=== PATIENT | male | born 1960 | race Caucasian/White ===

== ENCOUNTER 2025-01-24 11:53 | Inpatient (IN) | payer MEDICAID, SELFPAY ==
[2025-01-24] VITALS (20 sets, daily range): BP systolic 82–175; BP diastolic 54–105; PULSE 69–108; RESP 13–20; TEMP 36.5–37.7; O2SAT 90–98; BMI 25.0
--- NOTE | 2025-01-24 11:57 | ECG_ITS ---
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 Measurements Intervals [place] Rate: 70 P: 79 OR: 168 QRS: 62 QRSD: 85 T: 75 QT: 417 QTc: 451 Interpretive Statements SINUS RHYTHM SEPTAL MYOCARDIAL INFARCTION , OF INDETERMINATE AGE [40+ ms Q WAVE IN V1/V2] No previous ECG available for comparison Electronically Signed On 01-25-2025 18:08:58 CDT by Trenton Zaldivar M.D. [email or web address]
--- NOTE | 2025-01-24 12:02 | CTR_ITS ---
PROCEDURE INFORMATION: Exam: CT Lumbar Spine Without Contrast Exam date and time: 01/24/2025 12:33 PM Age: 64 years old Clinical indication: Injury or trauma; Blunt trauma (contusions or hematomas); Injury date: 01/24/25; Injury details: Trauma; Fall today off of porch step, PT states lb twisted when he grabbed rail to keep from falling and landed on RT hip; Prior surgery; Surgery date: 6+ months; Surgery type: C spine; Additional info: Low back pain TECHNIQUE: Imaging protocol: Computed tomography of the lumbar spine without contrast. Radiation optimization: All CT scans at this facility use at least one of these dose optimization techniques: automated exposure control; mA and/or kV adjustment per patient size (includes targeted exams where dose is matched to clinical indication); or iterative reconstruction. COMPARISON: CT pelvis wo con [id number] 01/24/2025 12:33 PM RADIATION DOSE METRICS: Total DLP (mGy-cm): 1815.38 FINDINGS: Bones/joints: Moderate scoliosis convex to the left. 7 mm right lateral subluxation of L2 on L3. 10 mm left lateral subluxation of L4 on L5. 2 mm posterior subluxation of L2 on L3. 6 mm posterior subluxation of L5 on S1. Severe L4-L5 degenerative disc disease. Minimal L1-L2 degenerative disc disease. Moderate degenerative disc disease at the other levels. No obvious disc herniations, but evaluation for such is limited on a noncontrast CT. Extensive degenerative changes in vertebral bodies from the L3 level to the S1 level. Chronic osteomyelitis can have a similar appearance, but should only be considered in the proper clinical setting. Multiple Schmorl's nodes throughout the lumbar spine and upper sacrum. Probably all chronic, but 1 or more could conceivably be acute in the setting of trauma. Mild right L2-L3 facet osteoarthritis. Moderate bilateral L3-L4 and L5-S1 facet osteoarthritis. Severe bilateral L4-L5 facet osteoarthritis. Mild L2-L3 spinal stenosis. Moderate L3-L4 and L4-L5 spinal stenosis. No other significant spinal stenosis. Moderate right and mild left L2-L3 neural foraminal narrowing. Moderate right L3-L4 neural foraminal narrowing. Severe bilateral L4-L5 neural foraminal narrowing. Moderate bilateral L5-S1 neural foraminal narrowing. No other significant neural foraminal narrowing. No other fractures suspected. Otherwise, unremarkable. Soft tissues: Otherwise, unremarkable soft tissues. CT/CT lumbar spine wo con* [id number] IMPRESSION: 1. Multiple Schmorl's nodes throughout the lumbar spine and upper sacrum. Probably all chronic, but 1 or more could conceivably be acute in the setting of trauma. 2. No other acute lumbar spine findings. 3. Additional details as above.
--- NOTE | 2025-01-24 12:02 | CTR_ITS ---
PROCEDURE INFORMATION: Exam: CT Pelvis Without Contrast, Skeleton Exam date and time: 01/24/2025 12:33 PM Age: 64 years old Clinical indication: Injury or trauma; Blunt trauma (contusions or hematomas); Bilateral; Pelvic region; Injury date: 01/24/25; Injury details: Trauma; Fall today off of porch step, PT states lb twisted when he grabbed rail to keep from falling and landed on RT hip; Additional info: Traumatic pelvic pain TECHNIQUE: Imaging protocol: Computed tomography of the pelvis without contrast. Exam focused on the skeleton. Radiation optimization: All CT scans at this facility use at least one of these dose optimization techniques: automated exposure control; mA and/or kV adjustment per patient size (includes targeted exams where dose is matched to clinical indication); or iterative reconstruction. COMPARISON: CT lumbar spine wo con* [id number] 01/24/2025 12:33 PM RADIATION DOSE METRICS: Total DLP (mGy-cm): 1815.38 FINDINGS: Intestine: Unremarkable visualized bowel. Vasculature: Small amount of arterial calcification. Otherwise, unremarkable. Reproductive: Enlargement of the prostate gland measuring 6.5 cm by 5 cm by 4.2 cm. Otherwise, unremarkable reproductive structures Urinary bladder: Mild, diffuse urinary bladder wall thickening. Otherwise, unremarkable urinary bladder. Bones/joints: See today's separate report for lumbar spine. Impacted right femoral neck fracture with varus deformity and anterior angulation. Otherwise, unremarkable. Soft tissues: Small bilateral fat containing inguinal hernias. Otherwise, unremarkable visualized body wall. Otherwise, unremarkable soft tissues. Lymph nodes: No lymphadenopathy. CT/CT pelvis wo con [id number] IMPRESSION: 1. Impacted right femoral neck fracture with varus deformity and anterior angulation. 2. Enlargement of the prostate gland measuring 6.5 cm by 5 cm by 4.2 cm. Please correlate with PSA levels. 3. Mild, diffuse urinary bladder wall thickening. Likely due to partial bladder outlet obstruction, but cystitis should be considered in the proper clinical setting. 4. No other acute pelvic findings.
--- NOTE | 2025-01-24 12:06 | XR_ITS ---
WS: [id number] Right hip, 2 views, 01/24/2025 Clinical Data: hip pain Comparison: None. Findings: There is a fracture of the right femoral neck. The femoral head remains within the acetabulum. There is slight superior displacement of the shaft of the right femur. The adjacent right pelvis is intact. XR/XR hip RT 2-3V wo/w pel* [id number] Impression: Right femoral neck fracture.
--- NOTE | 2025-01-24 12:24 | W.ED.EXTPRO ---
HPI - Extremity Problem General: Chief complaint: Extremity Injury, Lower Stated complaint: Fall Time Seen by Provider: 01/24/25 11:56 History of Present Illness: 64-year-old man with no significant past medical history presents emergency room after having had a fall. He says he tripped and fell over his dog and now has low back and right hip pain. He is curled up in the bed on examination so I cannot determine initially if he has any shortening or rotation. No neurologic symptoms. No head injury. No blood thinners. No other extremity injuries. No chest pain. No abdominal pain. No nausea or vomiting. Related Data Home Medications ?Medication ?Instructions ?Recorded ?Confirmed acetaminophen 500 mg tablet 1,000 mg PO QID PRN Fever Or Pain 01/24/25 01/24/25 (Tylenol Extra Strength) duloxetine 30 mg capsule,delayed 30 mg PO DAILY 01/24/25 01/24/25 release omeprazole 40 mg capsule,delayed 40 mg PO DAILY 01/24/25 01/24/25 release Allergies Allergy/AdvReac Type Severity Reaction Status Date / Time No Known Allergies Allergy Verified 01/24/25 14:38 Review of Systems Narrative: Constitutional symptoms: Negative except as documented in HPI. Skin symptoms: Negative except as documented in HPI. Eye symptoms: Negative except as documented in HPI. ENMT symptoms: Negative except as documented in HPI. Respiratory symptoms: Negative except as documented in HPI. Cardiovascular symptoms: Negative except as documented in HPI. Gastrointestinal symptoms: Negative except as documented in HPI. Genitourinary symptoms: Negative except as documented in HPI. Musculoskeletal symptoms: Negative except as documented in HPI. Neurologic symptoms: Negative except as documented in HPI. Psychiatric symptoms: Negative except as documented in HPI. Endocrine symptoms: Negative except as documented in HPI. Physical Exam Narrative: EXAM NARRATIVE: General: Alert, no acute distress. Skin: Warm, dry. Head: Normocephalic, atraumatic. Neck: Supple, trachea midline. Eye: Extraocular movements are intact. Ears, nose, mouth and throat: mucosa moist. Cardiovascular: Regular, Normal peripheral perfusion. Respiratory: Lungs are clear to auscultation, respirations are non-labored, breath sounds are equal, Symmetrical chest wall expansion. Gastrointestinal: Soft, Nontender, Non distended Musculoskeletal: No obvious shortening or rotation. However patient does have diffuse tenderness of his low back. Neurological: Alert and oriented, No focal neurological deficit observed. Psychiatric: Cooperative, appropriate mood & affect. Course Vital Signs: Vital signs: Vital Signs Temperature 98.7 F 01/24/25 14:34 Pulse Rate 108 H 01/24/25 14:34 Respiratory Rate 20 H 01/24/25 14:41 Blood Pressure 137/100 01/24/25 14:34 Pulse Oximetry 93 01/24/25 14:41 Oxygen Delivery Me thod Room Air 01/24/25 14:34 MDM - Extremity (Nontraumatic) Medical Decision Making Medical decision making: Differential diagnosis for patient with fall and hip pain with deformity including but not limited to and based on the above HPI, review of systems and physical exam: Hip fracture, femur fracture, pelvic fractures including pubic rami and acetabular fractures, hip strain, hip contusion. - Workup: - Hip films ordered to evaluate above. - also presurgical work up done. EKG, Chest xray and lab work CT of the lumbar spine and pelvis were done. Patient was not able to turn over for pelvic x-ray initially. Lab Review: Laboratory results were reviewed and interpreted by myself the emergency room physician. No leukocytosis. No anemia. No renal failure. Coags are normal. Consultation: I spoke with Dr. Gonzalez who is on-call for orthopedics who agrees to admission. He is going to take the patient directly to the OR. Patient has been n.p.o. all day today. Lumbar CT: Multiple Schmorl's nodes but no obvious acute fractures. This was reviewed and interpreted by myself the emergency room physician. I also reviewed the radiology report. Pelvis CT: Impacted right femoral neck fracture with varus deformity and anterior angulation. Other nonemergent findings. This was reviewed and interpreted by myself the emergency room physician. I also reviewed the radiology report. I reviewed the patient's medical record. Reexamination: Patient appears more comfortable now. He is laying flat in the bed. He does have some shortening and rotation. No increased work of breathing. No altered mental status. Assessment and plan: Fall Hip fracture - Patient going directly to the OR. IV Dilaudid in the emergency room. - Discussed findings and plan with patient. Answered any questions. - All laboratory values were reviewed and interpreted personally by myself, the ER physician - All imaging was reviewed and interpreted personally by myself, the ER physician. - Evaluation and treatment of this problem were appropriate in the emergency setting Lab Data 01/24/25 12:57 01/24/25 13:30 Radiology Impressions Lumbar Spine CT 01/24/25 12:02 IMPRESSION: 1. Multiple Schmorl's nodes throughout the lumbar spine and upper sacrum. Probably all chronic, but 1 or more could conceivably be acute in the setting of trauma. 2. No other acute lumbar spine findings. 3. Additional details as above. Pelvis CT 01/24/25 12:02 IMPRESSION: 1. Impacted right femoral neck fracture with varus deformity and anterior angulation. 2. Enlargement of the prostate gland measuring 6.5 cm by 5 cm by 4.2 cm. Please correlate with PSA levels. 3. Mild, diffuse urinary bladder wall thickening. Likely due to partial bladder outlet obstruction, but cystitis should be considered in the proper clinical setting. 4. No other acute pelvic findings. Hip/Pelvis X-Ray 01/24/25 12:06 Impression: Right femoral neck fracture. Chest X-Ray 01/24/25 12:44 IMPRESSION: No acute disease. Laboratory Results WBC 10.71 10^3/uL (3.29-11.43) 01/24/25 12:57 RBC 4.72 10^6/uL (3.85-5.65) 01/24/25 12:57 Hgb 14.80 g/dL (11.27-16.99) 01/24/25 12:57 Hct 45.2 % (37-53) 01/24/25 12:57 MCV 95.8 fl (82-101) 01/24/25 12:57 MCH 31.4 pg (27-33) 01/24/25 12:57 MCHC 32.7 g/dL (30-55) 01/24/25 12:57 RDW 13.3 % (12.1-15.1) 01/24/25 12:57 Plt Count 191 10^3/cmm (157-399) 01/24/25 12:57 MPV 9.6 fL (7.4-10.4) 01/24/25 12:57 Neut % (Auto) 84.7 % 01/24/25 12:57 Lymph % (Auto) 10.0 % 01/24/25 12:57 [place] % (Auto) 4.3 % 01/24/25 12:57 Eos % (Auto) 0.5 % 01/24/25 12:57 Baso % (Auto) 0.2 % 01/24/25 12:57 Neut # (Auto) 9.08 10^3/uL (1.8-7.7) H 01/24/25 12:57 Lymph # (Auto) 1.1 10^3/uL (0.8-4.8) 01/24/25 12:57 [place] # (Auto) 0.5 10^3/uL (0.2-0.9) 01/24/25 12:57 Eos # (Auto) 0.1 10^3/uL (0.0-0.8) 01/24/25 12:57 Baso # (Auto) 0.0 10^3/uL (0.0-0.1) 01/24/25 12:57 Nucleated RBC % (auto) 0 % 01/24/25 12:57 Nucleated RBCs # 0.0 /100WBC 01/24/25 12:57 PT 12.90 SECONDS (12.1-14.9) 01/24/25 13:30 INR 0.91 (0.8-1.2) 01/24/25 13:30 APTT 27.1 SECONDS (23.9-36.7) 01/24/25 13:30 Sodium 141 mmol/L (136-145) 01/24/25 13:30 Potassium 3.9 mmol/L (3.5-5.1) 01/24/25 13:30 Chloride 104 mmol/L (98-107) 01/24/25 13:30 Carbon Dioxide 25 mmol/L (22-29) 01/24/25 13:30 Anion Gap 15.9 (5-19) 01/24/25 13:30 BUN 10 mg/dL (8-23) 01/24/25 13:30 Creatinine 0.9 mg/dL (0.7-1.2) 01/24/25 13:30 GFR Calculation 85.5 mL/min (90-130) L 01/24/25 13:30 Glucose 97 mg/dL (65-115) 01/24/25 13:30 Calculated Osmolality 291 mOsm/kg (285-295) 01/24/25 13:30 Calcium 9.0 mg/dL (8.5-10.5) 01/24/25 13:30 Total Bilirubin 0.8 mg/dL (0.15-1.2) 01/24/25 13:30 AST 16 U/L (0-40) 01/24/25 13:30 ALT 13 U/L (0-41) 01/24/25 13:30 Alkaline Phosphatase 101 U/L (40-130) 01/24/25 13:30 Total Protein 7.3 g/dL (6.6-8.7) 01/24/25 13:30 Albumin 3.9 g/dL (3.5-5.2) 01/24/25 13:30 Globulin 3.4 g/dL (1.3-4.6) 01/24/25 13:30 All radiology interpretation(s) finalized by discharge Discharge Plan Discharge Patient Disposition: Admitted As Inpatient Clinical Impression: Fracture of hip Qualifiers: Encounter type: initial encounter Fracture type: closed Laterality: right Qualified Code(s): S72.001A - Fracture of unspecified part of neck of right femur, initial encounter for closed fracture Condition: Stable Coding Level of Care Code ED Support Clerk for Peggy Frederick
--- NOTE | 2025-01-24 12:44 | XRR_ITS ---
PROCEDURE INFORMATION: Exam: XR Chest Exam date and time: 01/24/2025 12:46 PM Age: 64 years old Clinical indication: Injury or trauma; Fall; Blunt trauma (contusions or hematomas); Additional info: Hip fracture TECHNIQUE: Imaging protocol: Radiologic exam of the chest. Views: 1 view. COMPARISON: No relevant prior studies available. FINDINGS: Lungs: Unremarkable. No consolidation. Pleural spaces: Unremarkable. No pleural effusion. No pneumothorax. Heart/Mediastinum: Unremarkable. No cardiomegaly. Bones/joints: Mild scoliosis. Surgical changes cervical spine. Otherwise, unremarkable. XR/XR chest 1V portable [id number] IMPRESSION: No acute disease.
[2025-01-24] MEDS: ondansetron 2 mg/ML SDV 2 mL 4 MG IVP (13:03)
[2025-01-24] MEDS: HYDROmorphone 0.5 MG/0.5 ML INJ 1 MG IVP (13:04)
[2025-01-24 13:09] LABS: Basophils % 0.2 %; Eosinophils # 0.1 10^3/uL (0.0-0.8); Eosinophils % 0.5 %; Hematocrit 45.2 % (37-53); Lymphocytes # 1.1 10^3/uL (0.8-4.8); Mean Corpuscular HGB Conc 32.7 g/dL (30-55); Mean Corpuscular Hemoglobin 31.4 pg (27-33); Mean Corpuscular Volume 95.8 fl (82-101); Mean Platelet Volume 9.6 fL (7.4-10.4); Monocytes # 0.5 10^3/uL (0.2-0.9); Monocytes % 4.3 %; Neutrophils # 9.08 10^3/uL (1.8-7.7); Neutrophils % 84.7 %; Nucleated Red Blood Cells % 0 %; Platelet Count 191 10^3/cmm (157-399); Red Blood Count 4.72 10^6/uL (3.85-5.65); Red Cell Distribution Width 13.3 % (12.1-15.1); White Blood Count 10.71 10^3/uL (3.29-11.43)
[2025-01-24 13:51] LABS: INR 0.91 (0.8-1.2)
[2025-01-24 13:52] LABS: Partial Thromboplastin Time 27.1 SECONDS (23.9-36.7)
[2025-01-24 13:56] LABS: Alanine Aminotransferase 13 U/L (0-41); Albumin Level 3.9 g/dL (3.5-5.2); Alkaline Phosphatase 101 U/L (40-130); Anion Gap 15.9 (5-19); Aspartate Amino Transferase 16 U/L (0-40); Blood Urea Nitrogen 10 mg/dL (8-23); Carbon Dioxide 25 mmol/L (22-29); Chloride 104 mmol/L (98-107); Globulin 3.4 g/dL (1.3-4.6); Glomerular Filtration Rate 85.5 mL/min (90-130); Glucose 97 mg/dL (65-115); Osmolality Calculated 291 mOsm/kg (285-295); Potassium 3.9 mmol/L (3.5-5.1); Sodium 141 mmol/L (136-145); Total Bilirubin 0.8 mg/dL (0.15-1.2); Total Protein 7.3 g/dL (6.6-8.7)
--- NOTE | 2025-01-24 14:30 | ANES.PREANE2 ---
Pre-Anesthetic Assessment Height/Weight: Height 6 ft Weight 185 lb Temp Pulse Resp BP Pulse Ox O2 Del Method 97.9 F 69 18 163/100 93 Room Air 01/24/25 11:58 01/24/25 12:08 01/24/25 14:01 01/24/25 14:01 01/24/25 14:01 01/24/25 11:58 Preop Diagnosis: hip fx Operation Date: 01/24/25 16:35 Proposed Procedures p Hemiarthroplasty Hip(Right) - Pola Gonzalez, DO Was Beta Nikki taken within 24 hours: N/A Was Clonidine taken within 24 hours: N/A Social Tobacco and No alcohol Exam alert, oriented x 3 and regular rate & rhythm Airway Submandibular: within normal limits Cervical ROM: within normal limits Mallampati: Class III Comments: Comments: edentulous Anesthetic Plan ASA status: 3 Anesthesia: General Other: No prior issues with anesthesia Patient fell over his dog and fractured his hip NPO since yesterday History of GERD on omeprazole Denies any cardiac issues, preop BP 163/100 Labs reviewed from today and acceptable for procedure. Hemoglobin 14.8 EKG sinus rhythm with septal WA Plan for general anesthesia Medications/Allergies Home Medications ?Medication ?Instructions ?Recorded ?Confirmed ?Last Taken ?Type acetaminophen 500 mg tablet 1,000 mg PO QID PRN Fever Or Pain 01/24/25 01/24/25 01/23/25 History (Tylenol Extra Strength) duloxetine 30 mg capsule,delayed 30 mg PO DAILY 01/24/25 01/24/25 01/23/25 History release omeprazole 40 mg capsule,delayed 40 mg PO DAILY 01/24/25 01/24/25 01/23/25 History release Allergies Allergy/AdvReac Type Severity Reaction Status Date / Time No Known Allergies Allergy Verified 01/24/25 14:38 Data Anesthesia 01/24/25 12:57 01/24/25 13:30 Short CBC 01/24/25 Range/Units 12:57 WBC 10.71 (3.29-11.43) 10^3/uL Hgb 14.80 (11.27-16.99) g/dL Hct 45.2 (37-53) % MCV 95.8 (82-101) fl Plt Count 191 (157-399) 10^3/cmm Neut % (Auto) 84.7 % Neut # (Auto) 9.08 H (1.8-7.7) 10^3/uL BMP 01/24/25 01/24/25 12:57 13:30 Sodium Cancelled 141 Potassium Cancelled 3.9 Chloride Cancelled 104 Carbon Dioxide Cancelled 25 BUN Cancelled 10 Creatinine Cancelled 0.9 Glucose Cancelled 97 Calcium Cancelled 9.0 Liver Function 01/24/25 01/24/25 Range/Units 12:57 13:30 Total Bilirubin Cancelled 0.8 AST Cancelled 16 ALT Cancelled 13 Alkaline Phosphatase Cancelled 101 Albumin Cancelled 3.9 Coags 01/24/25 01/24/25 12:57 13:30 PT Cancelled 12.90 INR Cancelled 0.91 APTT Cancelled 27.1
[2025-01-24] MEDS: sodium chloride 0.9% 1,000 ML 30 ML IV (14:37)
[2025-01-24] MEDS: fentaNYL 50 mcg/mL INJ 2mL IVP (14:41)
--- NOTE | 2025-01-24 15:40 | PM.CONSULT ---
Providers/Reason For Consult Consulting Physician/Specialty*: Hospitalist Reason for Consult*: Right hip fracture Attending Physician: Chris Miller MD Primary Care Provider: Herbert Law History of Present Illness History of Present Illness Luis E Melendez is a 64 year old male tripped over his dog sustained a right femoral neck fracture. Patient is complaining of back and hip pain. CT scan does not show any acute compression fractures that I can tell. CT scan of the hip shows a femoral neck fracture. Review of Systems Narrative: Constitutional symptoms: Negative except as documented in HPI. Skin symptoms: Negative except as documented in HPI. Eye symptoms: Negative except as documented in HPI. ENMT symptoms: Negative except as documented in HPI. Respiratory symptoms: Negative except as documented in HPI. Cardiovascular symptoms: Negative except as documented in HPI. Gastrointestinal symptoms: Negative except as documented in HPI. Genitourinary symptoms: Negative except as documented in HPI. Musculoskeletal symptoms: Negative except as documented in HPI. Neurologic symptoms: Negative except as documented in HPI. Psychiatric symptoms: Negative except as documented in HPI. Endocrine symptoms: Negative except as documented in HPI. Medications/Allergies Home Medications ?Medication ?Instructions ?Recorded ?Confirmed ?Last Taken ?Type acetaminophen 500 mg tablet 1,000 mg PO QID PRN Fever Or Pain 01/24/25 01/24/25 01/23/25 History (Tylenol Extra Strength) duloxetine 30 mg capsule,delayed 30 mg PO DAILY 01/24/25 01/24/25 01/23/25 History release omeprazole 40 mg capsule,delayed 40 mg PO DAILY 01/24/25 01/24/25 01/23/25 History release Allergies Allergy/AdvReac Type Severity Reaction Status Date / Time No Known Allergies Allergy Verified 01/24/25 14:38 Current Medications Generic Name Dose Route Start Last Admin Trade Name Freq PRN Reason Stop Dose Admin Fentanyl 50 mcg 01/24/25 14:20 01/24/25 14:41 Fentanyl 50 Mcg/Ml Inj 2ml IVP 50 mcg Q10M PRN Administration Preop Pain Sodium Chloride 1,000 mls @ 30 mls/hr 01/24/25 14:30 01/24/25 14:37 Sodium Chloride 0.9% IV 01/25/25 14:29 30 mls/hr .Q24H LESLEY Administration Vitals/I&O/Wt Last Vital Signs Temp 98.7 F 01/24/25 14:34 Pulse 108 H 01/24/25 14:34 Resp 20 H 01/24/25 14:41 BP 137/100 01/24/25 14:34 Pulse Ox 93 01/24/25 14:41 O2 Del Method Room Air 01/24/25 14:34 Weight last 48 hrs Weight 185 lb Physical Exam Narrative: Alert and oriented x 3 Head is normocephalic atraumatic Respirations are intact No evidence of any rashes or infection patient is laying on his left side with right side up. In severe pain Data 01/24/25 12:57 01/24/25 13:30 A&P Assessment and plan (1) Fracture of hip: Patient has a right femoral neck fracture. This displaced. This point plan is to do a right hip hemiarthroplasty. PDMP PDMP Reviewed: Not Reviewed Consult Attestations Medical Necessity Statement: Right femoral neck fracture Coding Level of Care Code Acute Code for Chg Fwd Diagnoses Closed fracture of right hip, initial encounter S72.001A Encounter type: initial encounter Fracture type: closed Laterality: right
[2025-01-24] MEDS: ceFAZolin 2,000 mg SDV 2000 MG IVP ×2 (15:47→22:52)
[2025-01-24] MEDS: VANCOMYCIN ADD-Vantage 1,000 MG VIAL 1000 MG XX (16:30)
--- NOTE | 2025-01-24 17:09 | PM.OP ---
Operative Report Date of procedure: January 24, 2025 Pre-op diagnosis: Right femoral neck fracture Post-op diagnosis: same Procedure done: Right hip hemiarthroplasty Surgeon: Pola Gonzalez DO Estimated blood loss (mL): 15 Procedure: Right hip hemiarthroplasty Patient brought the op suite after an undergoing anesthesia was placed in the lateral decubitus position with the right side up. All areas of impingement well-padded. Patient then prepped and draped no sterile fashion. C this was made over the right lateral hip. IT band was split modified [place] approach was used the abductors taken anteriorly. Capsule was also taken anteriorly. Femoral neck cut was made approximately a fingerbreadth above the lesser trochanter. The femoral head was then dislocated. Measured to be 50. Extension was brought to the femur. The paper box maker was used and then the canal finder was used followed by the lateralizer. The canal was then broached to 7 stem. A size stem that was 7 from [place] was inserted. A 50 size head with a negative 4 femoral neck length was used. Hip was then relocated. Stable all ranges of motion. Wounds were irrigated vancomycin powder was placed and wound was closed in layered fashion FiberWire was used to close the capsule and abductors. The IT band was closed with 0 Vicryl and skin was closed with Vicryl Monocryl suture. Sterile dressings applied patient transferred the PACU in stable addition.
--- NOTE | 2025-01-24 17:16 | XRR_ITS ---
PROCEDURE INFORMATION: Exam: XR Right Hip Exam date and time: 01/24/2025 5:34 PM Age: 64 years old Clinical indication: Device placement; Other: Postop hip; Prior surgery; Surgery date: Post-operative (0-2 days); Surgery type: Hemiarthroplasty RT hip TECHNIQUE: Imaging protocol: Radiologic exam of the right hip. Views: 1 view hip with pelvis when performed. COMPARISON: CR XR hip RT 2-3V wo/w pel* [id number] 01/24/2025 1:57 PM FINDINGS: Bones/joints: Postsurgical changes related to right total hip arthroplasty. No perihardware fracture. No dislocation. Soft tissues: Postsurgical changes of the soft tissues overlying the right hip. XR/XR hip RT 1V wo/w pel [id number] IMPRESSION: As above.
--- NOTE | 2025-01-24 18:30 | ANE.PACU2 ---
Inpatient post-anesthesia follow up: Airway intact: Yes Vital signs: Temperature 97.6 F Pulse Rate 67 Respiratory Rate 18 Blood Pressure 111/63 Pulse Oximetry 95 Oxygen Delivery Me thod Room Air Oxygen Flow Rate 2 Fraction of Inspir ed Oxygen Hydration adequate: Yes Nausea and vomiting: No Pain level: 1 Mental status: Baseline
[2025-01-24] MEDS: HYDROcodone-acetaminophen 5-325 mg Tablet 1 TAB PO (22:51)
[2025-01-25 00:36] VITALS: BP 110/68; PULSE 82; RESP 16; TEMP 36.6; O2SAT 94
[2025-01-25 04:00] VITALS: BP 103/54; PULSE 75; RESP 17; TEMP 36.4; O2SAT 93
[2025-01-25] MEDS: HYDROcodone-acetaminophen 5-325 mg Tablet 1 TAB PO ×3 (07:20→17:28)
[2025-01-25] MEDS: ceFAZolin 2,000 mg SDV 2000 MG IVP ×2 (07:20→14:51)
[2025-01-25] MEDS: aspirin 325 mg EC Tablet PO (07:20)
[2025-01-25 07:44] VITALS: BP 114/63; PULSE 74; RESP 15; TEMP 36.7; O2SAT 92
[2025-01-25] MEDS: nicotine 21 mg Patch 1 PATCH TRANSDERMA (08:34)
--- NOTE | 2025-01-25 11:35 | PM.HP ---
Providers/Chief Complaint Admitting Physician: Pola Gonzalez DO Primary Care Provider: Herbert Law Chief Complaint: Fall History of Present Illness Luis E Melendez is a 64 year old male with a history of neck fusion surgery underwent right hip surgery and fracture repair after a fall yesterday after he tripped over his dog losing his balance, falling off his porch. He reports that their leg feels a lot better now, but initially, pain radiated all the way down the leg. The patient describes ongoing issues with their spine and some lower back pain, particularly on the left side of the spine. There is mention of a blood saturating the dressing, which was recently changed. The patient denies swelling or pain in the leg at the time of the visit. They also request a refill of a stomach medication, possibly omeprazol. The patient reports being a current smoker and is trying to quit, using gum as an aid. No other acute symptoms or complaints are described. The patient denies alcohol and illicit drug use. No mention of fever, chest pain, shortness of breath, or other systemic symptoms. Review of Systems Const: Denies: fever(s), chills, body aches or malaise ENMT: Denies: throat pain Card: Denies: chest pain, edema, pre-syncope or dyspnea on exertion Resp: Denies: dyspnea, productive cough, change in phlegm color or hemoptysis GI: Denies: abdominal pain, nausea, vomiting, diarrhea, constipation, hematochezia or melena : Denies: flank pain, difficulty urinating, urinary frequency or hematuria Musc: Denies: back pain, joint swelling or joint redness Skin/Breast: Denies: rash or new lesions Neuro: Denies: headache(s) or confusion Medications/Allergies Home Medications ?Medication ?Instructions ?Recorded ?Confirmed ?Last Taken ?Type acetaminophen 500 mg tablet 1,000 mg PO QID PRN Fever Or Pain 01/24/25 01/24/25 01/23/25 History (Tylenol Extra Strength) duloxetine 30 mg capsule,delayed 30 mg PO DAILY 01/24/25 01/24/25 01/23/25 History release omeprazole 40 mg capsule,delayed 40 mg PO DAILY 01/24/25 01/24/25 01/23/25 History release Allergies Allergy/AdvReac Type Severity Reaction Status Date / Time No Known Allergies Allergy Verified 01/24/25 14:38 PFSH Acute PFSH: Surgical History (Updated 01/25/25 @ 13:33 by Jesus Eckert MD) H/O neck surgery Social History (Updated 01/25/25 @ 13:27 by Jesus Eckert MD) Smoking and tobacco/nicotine status: current every day tobacco/nicotine user Vitals/I&O/Wt Last Vital Signs Temp 98.0 F 01/25/25 07:44 Pulse 74 01/25/25 07:44 Resp 15 01/25/25 07:44 BP 114/63 01/25/25 07:44 Pulse Ox 92 01/25/25 07:44 O2 Del Method Room Air 01/25/25 07:44 O2 Flow Rate 2 01/24/25 18:35 01/24/25 01/25/25 01/25/25 22:59 06:59 14:59 Intake Total 1100 / 1100 120 / 120 Output Total 320 / 320 Balance 780 / 780 120 / 120 Weight last 48 hrs Weight 84.368 kg Weight 83.915 kg Weight 83.915 kg Physical Exam Const: COMMON NORMALS: patient oriented x3 and alert GENERAL APPEARANCE: cooperative ORIENTATION/CONSCIOUSNESS: Yes awake HENMT: COMMON NORMALS: oropharynx normal Neck/C-Spine: COMMON NORMALS: no JVD Resp: COMMON NORMALS: normal respiratory effort and clear to auscultation bilaterally AUSCULTATION: clear to auscultation bilaterally Cardio: COMMON NORMALS: no JVD, regular rhythm, S1 normal heart sound present, S2 normal heart sound present and No murmurs present (Cardio) RHYTHM: regular rhythm HEART SOUNDS: S1 normal heart sound present and S2 normal heart sound present GI: COMMON NORMALS: Normal to inspection, nondistended, normoactive bowel sounds present, Soft to palpation and non-tender PALPATION: Yes Soft to palpation Extremity: COMMON NORMALS: no joint enlargement and no pedal edema NARRATIVE EXTREMITY EXAM: Right hip surgery old without surrounding bruising erythema, adhesive dressing soaked with blood. Neuro: COMMON NORMALS: patient oriented x3 and moves all extremities SENSORIUM/ORIENTATION: Yes alert Skin: COMMON NORMALS: no rashes or lesions noted GENERAL SKIN EXAM: no rashes or lesions noted Urinary Catheter Management: Sapp: Cath Placed During This Visit: yes, but has since been removed by the nurse Reason for Continuing Indwelling Catheter: Decision to DC Catheter Urinary Catheter Date of Insertion: 01/24/25 Urinary Catheter Time of Insertion: 16:00 Date Urinary Catheter Removed: 01/25/25 Time Urinary Catheter Discontinued: 06:15 Data 01/24/25 12:57 01/24/25 13:30 A&P Assessment and plan (1) Fracture of hip: Right hip fracture status post ORIF 01/24 after mechanical fall. Post-surgical care (neck hardware, wound care) : Patient has a dressing with minor bleeding at the surgical site. Dressing was recently changed. Patient is on aspirin post-surgery due to increased risk of blood clots. Reviewed vitals, CBC, BMP, operative note. - Monitor dressing for increased bleeding or signs of infection. Discussed with ortho surgeon who will reassess as well. - Continue blood thinner as prescribed by Dr. Gonzalez. - Keep wound clean and notify provider if bleeding increases. -Acetaminophen, hydrocodone as needed for moderate pain. IV morphine for severe breakthrough pain. - PT evaluation. Discussed with nursing, patient case manager. Anticipated discharge home in the morning if no further issues with bleeding. Plan Chronic neck and spine pain : Patient has a history of neck surgery with hardware placement and chronic spine problems. Currently experiencing lower back pain, especially on the left side of the spine. No acute leg swelling or pain at this time. Pain initially radiated down the leg but has improved. - Monitor for worsening pain or new neurological symptoms. - Continue therapy as discussed. Medication refill request (stomach medication) : Patient requests for omeprazole to be restarted. - Ordered omeprazole Smoking cessation : Patient is a current smoker and is attempting to quit, using gum as an aid. Reports difficulty with quitting. Discussed smoking cessation for 3 and half minutes. He is agreeable to nicotine replacement, requested patch and lozenges for cravings. PDMP PDMP Reviewed: Not Reviewed Attestations Medical Necessity Statement*: Admission over 2 midnights anticipated for assessment and management after right hip fracture and repair with bleeding from the wound. and High MDM includes amount and/or complexity of data reviewed/ordered [ previous or external records, resulted lab(s)/test(s), ordered lab(s)/test(s) and other healthcare professional discussion] and described risk of complication, morbidity or mortality of management as documented Diagnoses Closed fracture of right hip, initial encounter S72.001A Encounter type: initial encounter Fracture type: closed Laterality: right
[2025-01-25 12:09] VITALS: BP 111/63; PULSE 67; RESP 18; TEMP 36.4; O2SAT 95
--- NOTE | 2025-01-25 13:08 | P.PN_ITS ---
Subjective 2 Subjective: Pain control patient doing well Vitals/I&O/Wt Last Vital Signs Temp 97.6 F 01/25/25 12:09 Pulse 67 01/25/25 12:09 Resp 18 01/25/25 12:09 BP 111/63 01/25/25 12:09 Pulse Ox 95 01/25/25 12:09 O2 Del Method Room Air 01/25/25 12:09 O2 Flow Rate 2 01/24/25 18:35 01/24/25 01/25/25 01/25/25 22:59 06:59 14:59 Intake Total 1100 / 1100 480 / 480 Output Total 320 / 320 Balance 780 / 780 480 / 480 Weight last 48 hrs Weight 186 lb Weight 185 lb Weight 185 lb Physical Exam 2 Narrative: Patient doing well pain controlled drainage of the wound. Urinary Catheter Management: Sapp: Cath Placed During This Visit: yes, but has since been removed by the nurse Reason for Continuing Indwelling Catheter: Decision to DC Catheter Urinary Catheter Date of Insertion: 01/24/25 Urinary Catheter Time of Insertion: 16:00 Date Urinary Catheter Removed: 01/25/25 Time Urinary Catheter Discontinued: 06:15 Data 01/24/25 12:57 01/24/25 13:30 A&P Assessment and plan (1) Fracture of hip: Patient has some drainage we will keep him for 1 more day [employer] keep pressure dressing on the wound. Will see him back tomorrow morning and discharge him tomorrow. PDMP PDMP Reviewed: Not Reviewed Attestations 2 Medical Necessity Statement*: Drainage from wound Coding Level of Care Code Acute Code for [facility] Diagnoses Closed fracture of right hip, initial encounter S72.001A Encounter type: initial encounter Fracture type: closed Laterality: right
[2025-01-25] MEDS: pantoprazole DR 40 mg Tablet PO (15:03)
[2025-01-25 16:13] VITALS: BP 148/87; PULSE 87; RESP 15; TEMP 36.6; O2SAT 98
--- NOTE | 2025-01-25 18:42 | PC.NURSE ---
Patient's surgical dressing saturated twice. Dr. Gonzalez notified. This nurse placed pressure dressing. First pressure dressing saturated, second dressing is C/D/I at this time.
[2025-01-25 19:45] VITALS: BP 109/59; PULSE 99; RESP 19; TEMP 37.3; O2SAT 93
[2025-01-26] VITALS (8 sets, daily range): BP systolic 123–155; BP diastolic 64–81; PULSE 64–110; RESP 14–19; TEMP 36.4–38.2; O2SAT 92–98
[2025-01-26 07:18] LABS: Basophils % 0.1 %; Eosinophils # 0.2 10^3/uL (0.0-0.8); Eosinophils % 2.4 %; Hematocrit 37.2 % (37-53); Lymphocytes # 1.4 10^3/uL (0.8-4.8); Lymphocytes % 18.3 %; Mean Corpuscular HGB Conc 32.5 g/dL (30-55); Mean Corpuscular Hemoglobin 31.7 pg (27-33); Mean Corpuscular Volume 97.4 fl (82-101); Mean Platelet Volume 9.4 fL (7.4-10.4); Monocytes # 0.7 10^3/uL (0.2-0.9); Monocytes % 9.1 %; Neutrophils # 5.47 10^3/uL (1.8-7.7); Neutrophils % 69.5 %; Nucleated Red Blood Cells % 0 %; Platelet Count 148 10^3/cmm (157-399); Red Blood Count 3.82 10^6/uL (3.85-5.65); Red Cell Distribution Width 13.2 % (12.1-15.1); White Blood Count 7.88 10^3/uL (3.29-11.43)
[2025-01-26] MEDS: pantoprazole DR 40 mg Tablet PO (09:25)
[2025-01-26] MEDS: aspirin 325 mg EC Tablet PO (09:25)
[2025-01-26] MEDS: HYDROcodone-acetaminophen 5-325 mg Tablet 1 TAB PO ×2 (09:25→19:54)
[2025-01-26 11:24] LABS: Adenovirus Not Detected (NOT DETECT); Chlamydia Pneumoniae Not Detected (NOT DETECT); Coronavirus 229E,HKU1,NL63,OC4 Not Detected (NOT DETECT); Human Metapneumovirus Not Detected (NOT DETECT); Human Rhinovirus/Enterovirus Not Detected (NOT DETECT); Influenza A Not Detected (NOT DETECT); Influenza A H1 Not Detected (NOT DETECT); Influenza A H1-2009 Not Detected (NOT DETECT); Influenza A H3 Not Detected (NOT DETECT); Influenza B Not Detected (NOT DETECT); Mycoplasma Pneumoniae Not Detected (NOT DETECT); Parainfluenza Virus Type 1 Not Detected (NOT DETECT); Parainfluenza Virus Type 2 Not Detected (NOT DETECT); Parainfluenza Virus Type 3 Not Detected (NOT DETECT); Parainfluenza Virus Type 4 Not Detected (NOT DETECT); Respiratory Syncytial Virus A Not Detected (NOT DETECT); Respiratory Syncytial Virus B Not Detected (NOT DETECT); SARS-COV-2 Not Detected (NOT DETECT)
--- NOTE | 2025-01-26 11:48 | P.PN_ITS ---
Subjective 2 Subjective: Patient is doing well no complaints today up in chair pain controlled Vitals/I&O/Wt Last Vital Signs Temp 98.2 F 01/26/25 07:35 Pulse 87 01/26/25 07:35 Resp 14 01/26/25 07:35 BP 155/81 01/26/25 07:35 Pulse Ox 96 01/26/25 07:35 O2 Del Method Room Air 01/26/25 07:35 O2 Flow Rate 2 01/24/25 18:35 01/25/25 01/26/25 01/26/25 22:59 06:59 14:59 Intake Total 240 / 720 Output Total 200 / 500 1350 / 1850 Balance -200 / -20 -1110 / -1130 Weight last 48 hrs Weight 192 lb 12.8 oz Weight 186 lb Weight 185 lb Weight 185 lb Physical Exam 2 Narrative: Wound with less drainage today. Sitting in chair comfortably Urinary Catheter Management: Sapp: Cath Placed During This Visit: yes, but has since been removed by the nurse Reason for Continuing Indwelling Catheter: Decision to DC Catheter Urinary Catheter Date of Insertion: 01/24/25 Urinary Catheter Time of Insertion: 16:00 Date Urinary Catheter Removed: 01/25/25 Time Urinary Catheter Discontinued: 06:15 Data 01/26/25 07:04 01/24/25 13:30 A&P Assessment and plan (1) Fracture of hip: Discharge today Follow-up orthopedic clinic in 2 weeks. Change dressing as needed PDMP PDMP Reviewed: Not Reviewed Attestations 2 Medical Necessity Statement*: Discharge today Coding Level of Care Code Acute Code for [facility] Fwd Diagnoses Closed fracture of right hip, initial encounter S72.001A Encounter type: initial encounter Fracture type: closed Laterality: right
--- NOTE | 2025-01-26 11:53 | P.DS_ITS ---
Discharge Providers Date of Admission: 01/24/25 18:14 Date of Discharge: January 26, 2025 Attending Provider at Admission: Pola Gonzalez DO Attending Provider at Discharge: Jesus Eckert Primary Care Provider: Herbert Law Diagnoses at Discharge Discharge Diagnosis (1) Fracture of hip: Status: Acute Qualifiers: Encounter type: initial encounter Fracture type: closed Laterality: right Qualified Code(s): S72.001A - Fracture of unspecified part of neck of right femur, initial encounter for closed fracture Reason for Visit Reason for Visit: Fall Physical Exam Narrative: Patient doing well walking with therapy pain controlled wounds clean dry intact minimal drainage Urinary Catheter Management: Sapp: Cath Placed During This Visit: yes, but has since been removed by the nurse Reason for Continuing Indwelling Catheter: Decision to DC Catheter Urinary Catheter Date of Insertion: 01/24/25 Urinary Catheter Time of Insertion: 16:00 Date Urinary Catheter Removed: 01/25/25 Time Urinary Catheter Discontinued: 06:15 Discharge Data Studies Completed and Pending Completed Studies During Hospitalization Category Date Time Status CT lumbar spine wo con* [id number] Stat Cat Scan 01/24/25 12:[address] pelvis wo con [id number] Stat Cat Scan 01/24/25 12:02 Completed XR chest 1V portable [id number] Stat Exams 01/24/25 12:44 Completed XR hip RT 1V wo/w pel [id number] Routine Exams 01/24/25 17:16 Completed XR hip RT 2-3V wo/w pel* [id number] Stat Exams 01/24/25 12:06 Completed Pending at discharge Category Date Time Status Urinalysis and Microscopic Stat Lab 01/24/25 12:45 Uncollected Radiology Impressions Lumbar Spine CT 01/24/25 12:02 IMPRESSION: 1. Multiple Schmorl's nodes throughout the lumbar spine and upper sacrum. Probably all chronic, but 1 or more could conceivably be acute in the setting of trauma. 2. No other acute lumbar spine findings. 3. Additional details as above. Pelvis CT 01/24/25 12:02 IMPRESSION: 1. Impacted right femoral neck fracture with varus deformity and anterior angulation. 2. Enlargement of the prostate gland measuring 6.5 cm by 5 cm by 4.2 cm. Please correlate with PSA levels. 3. Mild, diffuse urinary bladder wall thickening. Likely due to partial bladder outlet obstruction, but cystitis should be considered in the proper clinical setting. 4. No other acute pelvic findings. Hip/Pelvis X-Ray 01/24/25 12:06 Impression: Right femoral neck fracture. Chest X-Ray 01/24/25 12:44 IMPRESSION: No acute disease. Hip X-Ray 01/24/25 17:16 IMPRESSION: As above. Laboratory Results WBC 7.88 10^3/uL (3.29-11.43) 01/26/25 07:04 Corrected WBC Cancelled 01/26/25 04:20 RBC 3.82 10^6/uL (3.85-5.65) L 01/26/25 07:04 Hgb 12.10 g/dL (11.27-16.99) 01/26/25 07:04 Hct 37.2 % (37-53) 01/26/25 07:04 MCV 97.4 fl (82-101) 01/26/25 07:04 MCH 31.7 pg (27-33) 01/26/25 07:04 MCHC 32.5 g/dL (30-55) 01/26/25 07:04 RDW 13.2 % (12.1-15.1) 01/26/25 07:04 Plt Count 148 10^3/cmm (157-399) L 01/26/25 07:04 MPV 9.4 fL (7.4-10.4) 01/26/25 07:04 Gran % Cancelled 01/26/25 04:20 Neut % (Auto) 69.5 % 01/26/25 07:04 Lymph % (Auto) 18.3 % 01/26/25 07:04 Sutter % (Auto) 9.1 % 01/26/25 07:04 Eos % (Auto) 2.4 % 01/26/25 07:04 Baso % (Auto) 0.1 % 01/26/25 07:04 Neut # (Auto) 5.47 10^3/uL (1.8-7.7) 01/26/25 07:04 Lymph # (Auto) 1.4 10^3/uL (0.8-4.8) 01/26/25 07:04 Sutter # (Auto) 0.7 10^3/uL (0.2-0.9) 01/26/25 07:04 Eos # (Auto) 0.2 10^3/uL (0.0-0.8) 01/26/25 07:04 Baso # (Auto) 0.0 10^3/uL (0.0-0.1) 01/26/25 07:04 Absolute Gran (auto) Cancelled 01/26/25 04:20 Nucleated RBC % (auto) 0 % 01/26/25 07:04 Nucleated RBCs # 0.0 /100WBC 01/26/25 07:04 PT 12.90 SECONDS (12.1-14.9) 01/24/25 13:30 INR 0.91 (0.8-1.2) 01/24/25 13:30 APTT 27.1 SECONDS (23.9-36.7) 01/24/25 13:30 Sodium 141 mmol/L (136-145) 01/24/25 13:30 Potassium 3.9 mmol/L (3.5-5.1) 01/24/25 13:30 Chloride 104 mmol/L (98-107) 01/24/25 13:30 Carbon Dioxide 25 mmol/L (22-29) 01/24/25 13:30 Anion Gap 15.9 (5-19) 01/24/25 13:30 BUN 10 mg/dL (8-23) 01/24/25 13:30 Creatinine 0.9 mg/dL (0.7-1.2) 01/24/25 13:30 GFR Calculation 85.5 mL/min (90-130) L 01/24/25 13:30 Glucose 97 mg/dL (65-115) 01/24/25 13:30 Calculated Osmolality 291 mOsm/kg (285-295) 01/24/25 13:30 Calcium 9.0 mg/dL (8.5-10.5) 01/24/25 13:30 Total Bilirubin 0.8 mg/dL (0.15-1.2) 01/24/25 13:30 AST 16 U/L (0-40) 01/24/25 13:30 ALT 13 U/L (0-41) 01/24/25 13:30 Alkaline Phosphatase 101 U/L (40-130) 01/24/25 13:30 Total Protein 7.3 g/dL (6.6-8.7) 01/24/25 13:30 Albumin 3.9 g/dL (3.5-5.2) 01/24/25 13:30 Globulin 3.4 g/dL (1.3-4.6) 01/24/25 13:30 Adenovirus (PCR) Not detected (NOT DETECT) 01/26/25 09:27 C. pneumoniae DNA (PCR) Not detected (NOT DETECT) 01/26/25 09:27 Coronavirus 229E (PCR) Not detected (NOT DETECT) 01/26/25 09:27 Human Metapneumovir PCR Not detected (NOT DETECT) 01/26/25 09:27 Influenza A (H1) PCR Not detected (NOT DETECT) 01/26/25 09:27 Influ A (H1/09) PCR Not detected (NOT DETECT) 01/26/25 09: Influenza A (H3) PCR Not detected (NOT DETECT) 01/26/25 09:27 Influenza Type A (PCR) Not detected (NOT DETECT) 01/26/25 09:27 Influenza Type B (PCR) Not detected (NOT DETECT) 01/26/25 09:27 M. pneumoniae (PCR) Not detected (NOT DETECT) 01/26/25 09:27 Parainfluenza 1 (PCR) Not detected (NOT DETECT) 01/26/25 09:27 Parainfluenza 2 (PCR) Not detected (NOT DETECT) 01/26/25 09:27 Parainfluenza 3 (PCR) Not detected (NOT DETECT) 01/26/25 09:27 Parainfluenza 4 (PCR) Not detected (NOT DETECT) 01/26/25 09:27 RSV Type A (PCR) Not detected (NOT DETECT) 01/26/25 09:27 RSV Type B (PCR) Not detected (NOT DETECT) 01/26/25 09:27 Entero/Rhino (PCR) Not detected (NOT DETECT) 01/26/25 09:27 SARS-CoV-2 (PCR) Not detected (NOT DETECT) 01/26/25 09:27 Vitals Last Vital Signs Temp 98.2 F 01/26/25 11:52 Pulse 102 H 01/26/25 11:52 Resp 17 01/26/25 11:52 BP 123/80 01/26/25 11:52 Pulse Ox 92 01/26/25 11:52 O2 Del Method Room Air 01/26/25 11:52 O2 Flow Rate 2 01/24/25 18:35 Discharge Plan Discharge Patient Disposition: Home Condition: Stable Prescriptions: New hydrocodone-acetaminophen 5-325 mg tablet 1 - 2 tab PO .Q4-6H Qty: 40 0RF aspirin 325 mg tablet 325 mg PO DAILY 30 Days Qty: 30 0RF Continued omeprazole 40 mg capsule,delayed release(DR/EC) 40 mg PO DAILY duloxetine 30 mg capsule,delayed release(DR/EC) 30 mg PO DAILY Discontinued acetaminophen [Tylenol Extra Strength] 500 mg Tablet 1,000 mg PO QID PRN (Reason: Fever Or Pain) Discharge Orders: Discharge Order (Routine); Ordered 01/26/25 Ordered By: Pola Gonzalez Other Ambulatory Orders: DME: Walker (Order) Location: None Selected Ordered By: Pola Gonzalez Referrals: Pola Gonzalez DO [Physician, Orthopedics] - 02/08/25 1:45 pm Herbert Law [Primary Care Provider, Family Practice] - 02/01/25 11:00 am Discharge Diet: Advance as tolerated Discharge Activity: Limit activity as instructed Patient Instructions: Opioid Safety Activity Restrictions/Additional Instructions: You are being discharged from the hospital today during which time you have been under the care of Dr. Gonzalez. You had a right hip fracture. You were treated for this injury with right hip hemiarthroplasty. You may resume you normal diet (including any special diets as directed by your primary doctor) as well as your home medications. You should follow up with you primary doctor if you have any questions regarding medication you took prior to your stay in the hospital. You may take your pain medication as prescribed. After the first few days, take your pain medication as needed. Do not drive or drink alcohol while taking your pain medication. Your injury may increase your risk of developing a blood clot,or DVT, in your arm or leg. This could potentially dislodge and travel to your lungs and become a life threatening condition called apulmonary embolus,or PE. You have been prescribed aspirin to be taken to prevent this. Frequent movement of the legs will also help prevent this from occurring. If you develop any new or worsening cough, chestpain, bloody sputum or shortness of breath, call 911 or go to the EmergencyRoom. Always keep your surgical incision/dressing clean and dry. If you experience increasing pain at your incision site, redness, swelling, increasing discharge, foul odors, or fevers (greater than 100.4), night sweats or chills you should call the office at the above number. If you feel this is an emergency you should be evaluated in the Emergency Department of a nearby hospital. Orthopedic Patient Instructions Summary: Weight Bearing: Weight-bear as tolerated Activity: Weight-bear as tolerated. Diet: Regular. Wound Care: Keep dressing clean and dry. Anticoagulation: Aspirin Pain Medication: Take only as needed. Ice, rest and elevation will be of great benefit. Please plan to follow-up [facility] [] in [] weeks. You will need to call the clinic [phone] to schedule this visit. Thank you far allowing me to participate in your care. Do not hesitate to call the office with any questions or concerns. Discharge Attestations Time Spent in Discharge Care*: less than 30 min Quality Metrics Clinical Quality Measures [ No reported AMI, CVA or VTE this stay] Coding Level of Care Code Acute Code for [facility] Diagnoses Closed fracture of right hip, initial encounter S72.001A Encounter type: initial encounter Fracture type: closed Laterality: right
[2025-01-26 13:08] LABS: Bilirubin Urine Negative (Negative); Blood Urine Negative (Negative); Glucose Urine UA Negative (Normal); Ketones Urine Negative (Negative); Leukocyte Esterase Urine Negative (Negative); Nitrate Urine Negative (Negative); Protein Urine Negative (Negative); Specific Gravity, Urine 1.009 (1.005-1.030); Urine Appearance Clear (CLEAR); Urine Color Yellow (Yellow); pH Urine 5.5 (5-7)
[2025-01-26 13:12] LABS: Bacteria Urine None Seen /hpf; RBC Urine 0-2 /hpf (0-2); Squamous Epithelial Cell Urine 0-5 /hpf (0-5); WBC Urine 0-5 /hpf (0-5)
--- NOTE | 2025-01-26 13:45 | P.PN_ITS ---
Subjective 2 Subjective: Not feeling well this morning, having nausea. Had an episode of fever around 4:30 AM. No vomiting or diarrhea. So far without additional issues with bleeding from the wound. Vitals/I&O/Wt Last Vital Signs Temp 98.2 F 01/26/25 11:55 Pulse 102 H 01/26/25 11:55 Resp 17 01/26/25 11:55 BP 123/80 01/26/25 11:55 Pulse Ox 92 01/26/25 11:55 O2 Del Method Room Air 01/26/25 11:52 O2 Flow Rate 2 01/24/25 18:35 01/25/25 01/26/25 01/26/25 22:59 06:59 14:59 Intake Total 240 / 720 Output Total 200 / 500 1350 / 1850 Balance -200 / -20 -1110 / -1130 Weight last 48 hrs Weight 87.453 kg Weight 84.368 kg Weight 83.915 kg Physical Exam 2 Const: COMMON NORMALS: patient oriented x3 and alert GENERAL APPEARANCE: c ooperative ORIENTATION/CONSCIOUSNESS: Yes awake HENMT: COMMON NORMALS: oropharynx normal Neck/C-Spine: COMMON NORMALS: no JVD Resp: COMMON NORMALS: normal respiratory effort and clear to auscultation bilaterally AUSCULTATION: clear to auscultation bilaterally Cardio: COMMON NORMALS: no JVD, regular rhythm, S1 normal heart sound present, S2 normal heart sound present and No murmurs present (Cardio) RHYTHM: regular rhythm HEART SOUNDS: S1 normal heart sound present and S2 normal heart sound present GI: COMMON NORMALS: Normal to inspection, nondistended, normoactive bowel sounds present, Soft to palpation and non-tender PALPATION: Yes Soft to palpation Extremity: COMMON NORMALS: no joint enlargement and no pedal edema N ARRATIVE EXTREMITY EXAM: Right hip surgery old without surrounding bruising erythema, Reinforced dressing. No bleeding or strikethrough. Neuro: COMMON NORMALS: patient oriented x3 and moves all extremities S ENSORIUM/ORIENTATION: Yes alert Skin: COMMON NORMALS: no rashes or lesions noted GENERAL SKIN EXAM: no rashes or lesions noted Urinary Catheter Management: Sapp: Cath Placed During This Visit: yes, but has since been removed by the nurse Reason for Continuing Indwelling Catheter: Decision to DC Catheter Urinary Catheter Date of Insertion: 01/24/25 Urinary Catheter Time of Insertion: 16:00 Date Urinary Catheter Removed: 01/25/25 Time Urinary Catheter Discontinued: 06:15 Data 01/26/25 07:04 01/24/25 13:30 A&P Assessment and plan (1) Fever: Fever this morning on review of vital signs 100.3 Fahrenheit. Reviewed CBC, without leukocytosis. Mild thrombocytopenia 148. Tachycardia in low 100s. Some nausea but otherwise without other new symptoms of infection. Requested viral panel, reviewed, negative. Requested UA, also unremarkable. Requested collection of blood culture. He has been using incentive spirometer. Chest x- ray today without any sign of pneumonia and he has not had any respiratory symptoms. So far tolerating oral intake. Held back for observation, reassess for any additional fever, for resolution of tachycardia, and repeat blood counts. If doing well without any further issues may be able to discharge home tomorrow. Discussed with orthopedic surgeon. (2) Fracture of hip: Otherwise doing well, reviewed hemoglobin, with some decreased down to 12. Bleeding so far is subsided. Was reassessed by orthopedics and doing well from orthopedic perspective, okay for discharge and follow-up in office. Instructions have been entered. Sapp has been removed. Right hip fracture status post ORIF 01/24 after mechanical fall. Post-surgical care (neck hardware, wound care) : Patient has a dressing with minor bleeding at the surgical site. Dressing was recently changed. Patient is on aspirin post- surgery due to increased risk of blood clots. -Acetaminophen, hydrocodone as needed for moderate pain. IV morphine for severe breakthrough pain. - PT evaluation. Plan Chronic neck and spine pain : Patient has a history of neck surgery with hardware placement and chronic spine problems. Currently experiencing lower back pain, especially on the left side of the spine. No acute leg swelling or pain at this time. Pain initially radiated down the leg but has improved. - Monitor for worsening pain or new neurological symptoms. - Continue therapy as discussed. Medication refill request (stomach medication) : omeprazole Smoking cessation : Continue to encourage cessation. He is agreeable to nicotine replacement, requested patch and lozenges for cravings. PDMP PDMP Reviewed: Not Reviewed Attestations 2 Medical Necessity Statement*: Continue hospitalization for reassessment of postoperative fever, tachycardia after right hip fracture and repair. and High MDM includes amount and/or complexity of data reviewed/ordered [ resulted lab(s)/test(s), ordered lab(s)/test(s) and other healthcare professional discussion] and described risk of complication, morbidity or mortality of management as documented Diagnoses Fever R50.9 Closed fracture of right hip, initial encounter S72.001A Encounter type: initial encounter Fracture type: closed Laterality: right
[2025-01-26] MEDS: prochlorperazine 10 mg/2 mL Inj IVP (22:07)
[2025-01-27] MEDS: HYDROcodone-acetaminophen 5-325 mg Tablet 1 TAB PO ×4 (00:47→22:18)
[2025-01-27 03:16] LABS: Basophils % 0.2 %; Eosinophils # 0.1 10^3/uL (0.0-0.8); Eosinophils % 1.4 %; Hematocrit 34.7 % (37-53); Lymphocytes # 1.4 10^3/uL (0.8-4.8); Lymphocytes % 15.5 %; Mean Corpuscular HGB Conc 32.6 g/dL (30-55); Mean Corpuscular Hemoglobin 31.2 pg (27-33); Mean Corpuscular Volume 95.9 fl (82-101); Mean Platelet Volume 9.9 fL (7.4-10.4); Monocytes % 10.3 %; Neutrophils # 6.61 10^3/uL (1.8-7.7); Neutrophils % 72.1 %; Nucleated Red Blood Cells % 0 %; Platelet Count 151 10^3/cmm (157-399); Red Blood Count 3.62 10^6/uL (3.85-5.65); White Blood Count 9.18 10^3/uL (3.29-11.43)
[2025-01-27 03:38] LABS: Alanine Aminotransferase 7 U/L (0-41); Alkaline Phosphatase 61 U/L (40-130); Anion Gap 12.5 (5-19); Aspartate Amino Transferase 20 U/L (0-40); Blood Urea Nitrogen 9 mg/dL (8-23); Calcium 8.2 mg/dL (8.5-10.5); Carbon Dioxide 26 mmol/L (22-29); Chloride 99 mmol/L (98-107); Creatinine Clr Calc Pharmacy 110.4204; Glucose 115 mg/dL (65-115); Osmolality Calculated 278 mOsm/kg (285-295); Potassium 3.5 mmol/L (3.5-5.1); Sodium 134 mmol/L (136-145); Total Bilirubin 1.4 mg/dL (0.15-1.2)
[2025-01-27 04:00] VITALS: BP 122/81; PULSE 92; RESP 18; TEMP 36.8; O2SAT 94
[2025-01-27 08:06] VITALS: BP 116/60; PULSE 102; RESP 17; TEMP 38; O2SAT 96
[2025-01-27] MEDS: pantoprazole DR 40 mg Tablet PO (08:48)
[2025-01-27] MEDS: aspirin 325 mg EC Tablet PO (08:49)
[2025-01-27] MEDS: ondansetron 2 mg/ML SDV 2 mL 4 MG IVP (08:56)
--- NOTE | 2025-01-27 10:20 | CTR_ITS ---
PROCEDURE INFORMATION: Exam: CT Chest Without Contrast; Diagnostic Exam date and time: 01/27/2025 11:01 AM Age: 64 years old Clinical indication: Fever; Prior surgery; Surgery date: Post-operative (0-2 days); Surgery type: Right hip replacement; Additional info: Post op fever TECHNIQUE: Imaging protocol: Diagnostic computed tomography of the chest without contrast. Total images: 2 Radiation optimization: All CT scans at this facility use at least one of these dose optimization techniques: automated exposure control; mA and/or kV adjustment per patient size (includes targeted exams where dose is matched to clinical indication); or iterative reconstruction. COMPARISON: CR XR chest 1V portable [id number] 01/24/2025 12:46 PM RADIATION DOSE METRICS: Total DLP (mGy-cm): 985.3 FINDINGS: Lungs: Unremarkable. No consolidation. No masses. Pleural spaces: Unremarkable. No pneumothorax. No pleural effusion. Heart: Unremarkable. No cardiomegaly. No pericardial effusion. Coronary arteries: Moderate coronary arterial calcification, indicating the presence of coronary artery disease. Lymph nodes: Unremarkable. No enlarged lymph nodes. Vasculature: Unremarkable. No aortic aneurysm. Bones/joints: Old left rib fractures are evident. Partially visualized spinal fusion hardware noted. Soft tissues: Unremarkable. Other findings: Mild atherosclerotic disease burden is evident. PROCEDURE INFORMATION: Exam: CT Abdomen And Pelvis Without Contrast Exam date and time: 01/27/2025 11:01 AM Age: 64 years old Clinical indication: Fever; Prior surgery; Surgery date: Post-operative (0-2 days); Surgery type: Right hip replacement; Additional info: Post op fever TECHNIQUE: Imaging protocol: Computed tomography of the abdomen and pelvis without contrast. Radiation optimization: All CT scans at this facility use at least one of these dose optimization techniques: automated exposure control; mA and/or kV adjustment per patient size (includes targeted exams where dose is matched to clinical indication); or iterative reconstruction. COMPARISON: CT pelvis wo con [id number] 01/24/2025 12:33 PM RADIATION DOSE METRICS: Total DLP (mGy-cm): 985.3 FINDINGS: Tubes, catheters and devices: The prosthesis appears near anatomic in positioning. No parallel lucencies adjacent to the prosthesis are seen to suggest loosening. No acute fractures, subluxation, nor dislocation. Liver: Normal. No mass. Gallbladder and biliary ducts: Normal. No calcified stones. No ductal dilation. Pancreas: Normal. No ductal dilation. Spleen: Normal. No splenomegaly. Adrenal glands: Normal. No mass. Kidneys and ureters: Normal. No hydronephrosis. Stomach and bowel: Unremarkable. No obstruction. No mucosal thickening. Appendix: No evidence of appendicitis. Intraperitoneal space: Unremarkable. No free air. No significant fluid collection. Vasculature: Unremarkable. No abdominal aortic aneurysm. Lymph nodes: Unremarkable. No enlarged lymph nodes. Urinary bladder: There is nonspecific urinary bladder wall thickening, under distention versus cystitis. Reproductive: Unremarkable as visualized. Bones/joints: Right hip arthroplasty is present. Subcutaneous emphysema and fluid are present lateral to right hip and partially extending into the gluteal and anterior musculature. Findings are felt to be expected from the recent surgery. An infectious etiology can not be excluded. Soft tissues: Ventral hernia contains only fat and is not inflamed. Bilateral fat-containing inguinal hernia. Other findings: Mild atherosclerotic disease burden is evident. CT/[place] [id number] IMPRESSION: Moderate coronary arterial calcification, indicating the presence of coronary artery disease. If the patient has associated symptoms recommend management as per chest pain guidelines. If the patient is asymptomatic consider reviewing modifiable cardiovascular risk factors and managing as per guidelines for primary prevention. IMPRESSION: 1. Subcutaneous emphysema and fluid are present lateral to right hip and partially extending into the gluteal and anterior musculature. Findings are felt to be expected from the recent surgery. An infectious etiology can not be excluded. 2. There is nonspecific urinary bladder wall thickening, under distention versus cystitis.
--- NOTE | 2025-01-27 10:21 | USR_ITS ---
PROCEDURE INFORMATION: Exam: US Duplex Lower Extremity Veins, Bilateral Exam date and time: 01/27/2025 12:52 PM Age: 64 years old Clinical indication: Screening exam; Dvt; Prior surgery; Surgery date: 3-7 days post-operative; Surgery type: Hip surgery TECHNIQUE: Imaging protocol: Real-time duplex ultrasound of the bilateral extremities with 2-D mendez scale, color Doppler flow and spectral waveform analysis including responses to compression and other maneuvers (when performed) with image documentation. Complete exam focused on the lower extremity veins. Total images: 2 COMPARISON: CT pelvis wo con [id number] 01/24/2025 12:33 PM FINDINGS: Right deep veins: Unremarkable. The common femoral, femoral, proximal profunda femoral and popliteal veins are patent without thrombus. Normal Doppler waveforms. Normal compressibility and/or augmentation response. Left deep veins: Unremarkable. The common femoral, femoral, proximal profunda femoral and popliteal veins are patent without thrombus. Normal Doppler waveforms. Normal compressibility and/or augmentation response. Superficial veins: Greater saphenous veins at the saphenofemoral junctions are patent bilaterally without thrombus. Soft tissues: Unremarkable. US/[place] [id number] IMPRESSION: No evidence of deep vein thrombosis.
[2025-01-27 10:58] LABS: D Dimer 3.08 ug/mLFEU (0-0.59)
[2025-01-27 11:02] LABS: Estmated Average Glucose 91; Hemoglobin A1C 4.8 % (4.0-6.0)
[2025-01-27 11:23] LABS: Procalcitonin 0.29 ng/mL (0-0.5); Thyroid Stimulating Hormone 1.22 uIU/mL (0.27-4.20); Vitamin B12 303 pg/mL (232-1245)
--- NOTE | 2025-01-27 11:33 | P.PN_ITS ---
Subjective 2 Subjective: Hospital course, labs appreciated. No acute events overnight. Tmax in last 24 hours 100.4 Fahrenheit. Remains on room air. Sleeping on examination. Wakes up to verbal stimulus. Vitals/I&O/Wt Last Vital Signs Temp 100.4 F H 01/27/25 08:06 Pulse 102 H 01/27/25 08:06 Resp 17 01/27/25 08:06 BP 116/60 01/27/25 08:06 Pulse Ox 96 01/27/25 08:06 O2 Del Method Room Air 01/27/25 08:06 O2 Flow Rate 2 01/24/25 18:35 01/26/25 01/27/25 01/27/25 22:59 06:59 14:59 Intake Total 240 / 240 Output Total 550 / 550 Balance -550 / -430 240 / 240 Weight last 48 hrs Weight 88.723 kg Weight 87.453 kg Physical Exam 2 Const: COMMON NORMALS: patient oriented x3 and alert GENERAL APPEARANCE: c ooperative ORIENTATION/CONSCIOUSNESS: Yes awake HENMT: COMMON NORMALS: oropharynx normal Neck/C-Spine: COMMON NORMALS: no JVD Resp: COMMON NORMALS: normal respiratory effort and clear to auscultation bilaterally AUSCULTATION: clear to auscultation bilaterally Cardio: COMMON NORMALS: no JVD, regular rhythm, S1 normal heart sound present, S2 normal heart sound present and No murmurs present (Cardio) RHYTHM: regular rhythm HEART SOUNDS: S1 normal heart sound present and S2 normal heart sound present GI: COMMON NORMALS: Normal to inspection, nondistended, normoactive bowel sounds present, Soft to palpation and non-tender PALPATION: Yes Soft to palpation Extremity: COMMON NORMALS: no joint enlargement and no pedal edema N ARRATIVE EXTREMITY EXAM: Right hip surgery old without surrounding bruising erythema, Reinforced dressing. No bleeding or strikethrough. Neuro: COMMON NORMALS: patient oriented x3 and moves all extremities S ENSORIUM/ORIENTATION: Yes alert Skin: COMMON NORMALS: no rashes or lesions noted GENERAL SKIN EXAM: no rashes or lesions noted Urinary Catheter Management: Sapp: Cath Placed During This Visit: yes, but has since been removed by the nurse Reason for Continuing Indwelling Catheter: Decision to DC Catheter Urinary Catheter Date of Insertion: 01/24/25 Urinary Catheter Time of Insertion: 16:00 Date Urinary Catheter Removed: 01/25/25 Time Urinary Catheter Discontinued: 06:15 Data 01/27/25 02:08 01/27/25 02:08 Micro: Microbiology 01/26/25 14:06 Blood Culture - Preliminary Blood SPECIMEN COLLECTED 01/26/25 14:09 Blood Culture - Preliminary Blood SPECIMEN COLLECTED A&P Assessment and plan (1) Postoperative fever: Likelihood of noninfectious fever with possibility of VTE versus developing atelectasis. Tmax of 100.4 Fahrenheit in last 24 hours. Respiratory viral panel, UA, chest x-ray negative for acute infection. Trend procalcitonin. Follow-up blood cultures. Check MRSA swab. For now empirically start on IV Zosyn. Check D-dimer. Lower limb Dopplers with concerns for noninfectious fever. Check CT chest and pelvis without contrast including the pelvis for further evaluation. (2) Fracture of hip: Post-ORIF from 01/24. Continue to work with PT. Started on aspirin 325 mg daily for anticoagulation as per orthopedic team. Change [place] to 5 mg every 6 hour as needed. Delete that Hemoglobin stable. (3) Encounter for postoperative care: (4) Status post open reduction and internal fixation (ORIF) of fracture: Plan Chronic neck and spine pain : Patient has a history of neck surgery with hardware placement and chronic spine problems. Currently experiencing lower back pain, especially on the left side of the spine. No acute leg swelling or pain at this time. Pain initially radiated down the leg but has improved. - Monitor for worsening pain or new neurological symptoms. - Continue therapy as discussed. Medication refill request (stomach medication) : omeprazole Smoking cessation : Continue to encourage cessation. He is agreeable to nicotine replacement, requested patch and lozenges for cravings. Full code Regular diet Protonix for PUD prophylaxis Start on heparin 5000 every 12 hourly for DVT prophylaxis. PDMP PDMP Reviewed: Not Reviewed Attestations 2 Medical Necessity Statement*: Requires further hospitalization for postoperative care, post-ORIF, further evaluation postoperative fever Diagnoses Postoperative fever R50.82 Closed fracture of right hip, initial encounter S72.001A Encounter type: initial encounter Fracture type: closed Laterality: right Encounter for postoperative care Z48.89 Status post open reduction and internal fixation (ORIF) of fracture Z98.890; Z87.81
[2025-01-27 11:34] LABS: Iron 18 ug/dL (59-158); Percent Saturation 9.9 % (20-50); Total Iron Binding Capacity 181 mcg/dl; Unsaturated Iron Binding 163 ug/dL (112-347)
[2025-01-27 11:37] VITALS: BP 101/62; PULSE 97; RESP 18; TEMP 36.8; O2SAT 97
[2025-01-27] MEDS: piperacillin-tazobactam 3.375 GM in sodium chloride 0.9% (plus) 50 ML IV ×2 (12:24→18:24)
[2025-01-27] MEDS: heparin 5,000 unit/mL INJ 1 mL 5000 UNIT SUBCUT ×2 (12:25→22:18)
--- NOTE | 2025-01-27 14:04 | PC.OT ---
OT treatment attempted with pt declining services; will attempt again at later time.
[2025-01-27 14:41] LABS: MRSA PCR OZH (swab) NOT DETECTED (Negative)
[2025-01-27 16:08] VITALS: BP 116/63; PULSE 91; RESP 17; TEMP 37.3; O2SAT 94
[2025-01-27 20:00] VITALS: BP 151/72; PULSE 92; RESP 18; TEMP 37.1; O2SAT 97
[2025-01-28] VITALS: BP 110/73; PULSE 97; RESP 18; TEMP 37.7; O2SAT 96
[2025-01-28] MEDS: piperacillin-tazobactam 3.375 GM in sodium chloride 0.9% (plus) 50 ML IV ×3 (02:34→18:04)
[2025-01-28] MEDS: HYDROcodone-acetaminophen 5-325 mg Tablet 1 TAB PO ×5 (02:39→23:02)
[2025-01-28 03:50] VITALS: BP 124/77; PULSE 97; RESP 19; TEMP 36.8; O2SAT 94
[2025-01-28 05:14] LABS: Folate Level 6.9 ng/mL (4.5-32.2)
[2025-01-28] MEDS: pantoprazole DR 40 mg Tablet PO (07:15)
[2025-01-28] MEDS: aspirin 325 mg EC Tablet PO (07:15)
[2025-01-28 08:32] VITALS: BP 101/82; PULSE 104; RESP 18; TEMP 37.3; O2SAT 94
[2025-01-28] MEDS: heparin 5,000 unit/mL INJ 1 mL 5000 UNIT SUBCUT ×2 (10:12→23:03)
[2025-01-28 11:43] LABS: Basophils % 0.3 %; Eosinophils # 0.4 10^3/uL (0.0-0.8); Eosinophils % 5.4 %; Hematocrit 36.1 % (37-53); Lymphocytes # 1.2 10^3/uL (0.8-4.8); Lymphocytes % 17.8 %; Mean Corpuscular HGB Conc 32.7 g/dL (30-55); Mean Corpuscular Hemoglobin 31.5 pg (27-33); Mean Corpuscular Volume 96.3 fl (82-101); Mean Platelet Volume 9.6 fL (7.4-10.4); Monocytes # 0.6 10^3/uL (0.2-0.9); Monocytes % 8.6 %; Neutrophils # 4.38 10^3/uL (1.8-7.7); Nucleated Red Blood Cells % 0 %; Platelet Count 177 10^3/cmm (157-399); Red Blood Count 3.75 10^6/uL (3.85-5.65); Red Cell Distribution Width 12.9 % (12.1-15.1); White Blood Count 6.53 10^3/uL (3.29-11.43)
[2025-01-28 12:03] VITALS: BP 116/69; PULSE 93; RESP 19; TEMP 37; O2SAT 96
[2025-01-28 12:03] LABS: Alanine Aminotransferase 8 U/L (0-41); Albumin Level 3.1 g/dL (3.5-5.2); Alkaline Phosphatase 61 U/L (40-130); Aspartate Amino Transferase 21 U/L (0-40); Blood Urea Nitrogen 11 mg/dL (8-23); Calcium 8.6 mg/dL (8.5-10.5); Carbon Dioxide 29 mmol/L (22-29); Chloride 96 mmol/L (98-107); Creatinine Clr Calc Pharmacy 99.3523; Globulin 3.5 g/dL (1.3-4.6); Glomerular Filtration Rate 85.5 mL/min (90-130); Glucose 100 mg/dL (65-115); Osmolality Calculated 277 mOsm/kg (285-295); Sodium 134 mmol/L (136-145); Total Protein 6.6 g/dL (6.6-8.7)
--- NOTE | 2025-01-28 12:11 | P.PN_ITS ---
Subjective 2 Subjective: No acute events overnight. Patient states she is feeling better. Denies any nausea, vomiting, headache. Tmax in last 24 hours 99.9 Fahrenheit midnight last night. Vitals/I&O/Wt Last Vital Signs Temp 98.6 F 01/28/25 12:03 Pulse 93 01/28/25 12:03 Resp 19 H 01/28/25 12:03 BP 116/69 01/28/25 12:03 Pulse Ox 96 01/28/25 12:03 O2 Del Method Room Air 01/28/25 12:03 O2 Flow Rate 2 01/24/25 18:35 01/27/25 01/28/25 01/28/25 22:59 06:59 14:59 Intake Total 580 / 1180 290 / 1470 600 / 600 Output Total 275 / 275 700 / 975 Balance 305 / 905 -410 / 495 600 / 600 Weight last 48 hrs Weight 89.947 kg Weight 88.723 kg Physical Exam 2 Const: COMMON NORMALS: patient oriented x3 and alert GENERAL APPEARANCE: c ooperative ORIENTATION/CONSCIOUSNESS: Yes awake HENMT: COMMON NORMALS: oropharynx normal Neck/C-Spine: COMMON NORMALS: no JVD Resp: COMMON NORMALS: normal respiratory effort and clear to auscultation bilaterally AUSCULTATION: clear to auscultation bilaterally Cardio: COMMON NORMALS: no JVD, regular rhythm, S1 normal heart sound present, S2 normal heart sound present and No murmurs present (Cardio) RHYTHM: regular rhythm HEART SOUNDS: S1 normal heart sound present and S2 normal heart sound present GI: COMMON NORMALS: Normal to inspection, nondistended, normoactive bowel sounds present, Soft to palpation and non-tender PALPATION: Yes Soft to palpation Extremity: COMMON NORMALS: no joint enlargement and no pedal edema N ARRATIVE EXTREMITY EXAM: Right hip surgery old without surrounding bruising erythema, Reinforced dressing. No bleeding or strikethrough. Neuro: COMMON NORMALS: patient oriented x3 and moves all extremities S ENSORIUM/ORIENTATION: Yes alert Skin: COMMON NORMALS: no rashes or lesions noted GENERAL SKIN EXAM: no rashes or lesions noted Urinary Catheter Management: Sapp: Cath Placed During This Visit: yes, but has since been removed by the nurse Reason for Continuing Indwelling Catheter: Decision to DC Catheter Urinary Catheter Date of Insertion: 01/24/25 Urinary Catheter Time of Insertion: 16:00 Date Urinary Catheter Removed: 01/25/25 Time Urinary Catheter Discontinued: 06:15 Data 01/28/25 11:36 01/28/25 11:36 Micro: Microbiology 01/26/25 14:06 Blood Culture - Preliminary Blood NEGATIVE TO DATE 01/26/25 14:09 Blood Culture - Preliminary Blood NEGATIVE TO DATE A&P Assessment and plan (1) Postoperative fever: Likelihood of noninfectious fever with possibility of VTE versus developing atelectasis. Tmax of 100.4 Fahrenheit in last 24 hours. Respiratory viral panel, UA, chest x-ray negative for acute infection. Trend procalcitonin. Follow-up blood cultures. Check MRSA swab. For now empirically start on IV Zosyn. Check D-dimer. Lower limb Dopplers with concerns for noninfectious fever. Check CT chest and pelvis without contrast including the pelvis for further evaluation. (2) Fracture of hip: Post-ORIF from 01/24. Continue to work with PT. Started on aspirin 325 mg daily for anticoagulation as per orthopedic team. Change [place] to 5 mg every 6 hour as needed. Delete that Hemoglobin stable. (3) Encounter for postoperative care: (4) Status post open reduction and internal fixation (ORIF) of fracture: Plan Chronic neck and spine pain : Patient has a history of neck surgery with hardware placement and chronic spine problems. Currently experiencing lower back pain, especially on the left side of the spine. No acute leg swelling or pain at this time. Pain initially radiated down the leg but has improved. - Monitor for worsening pain or new neurological symptoms. - Continue therapy as discussed. Medication refill request (stomach medication) : omeprazole Smoking cessation : Continue to encourage cessation. He is agreeable to nicotine replacement, requested patch and lozenges for cravings. Full code Regular diet Protonix for PUD prophylaxis Start on heparin 5000 every 12 hourly for DVT prophylaxis. Plan for the day: Blood cultures so far negative. Lower limb Dopplers negative for DVT. Appreciate CT abdomen pelvis chest without any concerns for infectious source. Most likely fevers in setting of atelectasis. Continue to follow-up blood cultures. Continue with IV antibiotics for next 24 hours. If patient remains hemodynamically stable with fever less than 100.4 Fahrenheit without leukocytosis can plan to discharge in next 24 hours back home PDMP PDMP Reviewed: Not Reviewed Attestations 2 Medical Necessity Statement*: Requires further hospitalization for postoperative care, post-ORIF, further evaluation postoperative fever Diagnoses Postoperative fever R50.82 Closed fracture of right hip, initial encounter S72.001A Encounter type: initial encounter Fracture type: closed Laterality: right Encounter for postoperative care Z48.89 Status post open reduction and internal fixation (ORIF) of fracture Z98.890; Z87.81
[2025-01-28 16:42] VITALS: BP 108/68; PULSE 87; RESP 18; TEMP 36.8; O2SAT 97
[2025-01-28 19:50] VITALS: BP 131/71; PULSE 94; RESP 16; TEMP 36.9; O2SAT 98
[2025-01-29] VITALS: BP 151/62; PULSE 111; RESP 14; TEMP 37.2; O2SAT 92
[2025-01-29] MEDS: piperacillin-tazobactam 3.375 GM in sodium chloride 0.9% (plus) 50 ML IV (03:10)
[2025-01-29] MEDS: HYDROcodone-acetaminophen 5-325 mg Tablet 1 TAB PO (03:10)
[2025-01-29 04:35] VITALS: BP 116/71; PULSE 89; RESP 17; TEMP 37.1; O2SAT 92
[2025-01-29 05:30] LABS: Basophils % 0.3 %; Eosinophils # 0.4 10^3/uL (0.0-0.8); Eosinophils % 6.1 %; Hematocrit 31.4 % (37-53); Lymphocytes # 1.3 10^3/uL (0.8-4.8); Lymphocytes % 22.8 %; Mean Corpuscular HGB Conc 33.4 g/dL (30-55); Mean Corpuscular Hemoglobin 31.4 pg (27-33); Mean Platelet Volume 9.7 fL (7.4-10.4); Monocytes # 0.5 10^3/uL (0.2-0.9); Monocytes % 8.5 %; Neutrophils # 3.55 10^3/uL (1.8-7.7); Neutrophils % 61.4 %; Nucleated Red Blood Cells % 0 %; Platelet Count 176 10^3/cmm (157-399); Red Blood Count 3.34 10^6/uL (3.85-5.65); Red Cell Distribution Width 12.8 % (12.1-15.1); White Blood Count 5.78 10^3/uL (3.29-11.43)
[2025-01-29 05:45] LABS: Alanine Aminotransferase 8 U/L (0-41); Alkaline Phosphatase 50 U/L (40-130); Aspartate Amino Transferase 19 U/L (0-40); Blood Urea Nitrogen 9 mg/dL (8-23); Calcium 8.4 mg/dL (8.5-10.5); Carbon Dioxide 25 mmol/L (22-29); Chloride 99 mmol/L (98-107); Creatinine Clr Calc Pharmacy 99.2868; Globulin 2.9 g/dL (1.3-4.6); Glomerular Filtration Rate 85.5 mL/min (90-130); Glucose 93 mg/dL (65-115); Osmolality Calculated 276 mOsm/kg (285-295); Sodium 134 mmol/L (136-145); Total Bilirubin 0.8 mg/dL (0.15-1.2); Total Protein 5.9 g/dL (6.6-8.7)
[2025-01-29 05:49] LABS: Magnesium 2.4 mg/dL (1.7-2.3)
[2025-01-29 08:00] VITALS: BP 118/67; PULSE 76; RESP 16; TEMP 36.6; O2SAT 98
--- NOTE | 2025-01-29 08:26 | PM.DCS ---
Discharge Providers Date of Admission: 01/24/25 18:14 Date of Discharge: January 29, 2025 Attending Provider at Admission: Pola Gonzalez DO Attending Provider at Discharge: Mahamed Bates MD Consults: Orthopedics: Dr. Gonzalez Primary Care Provider: Herbert Law Diagnoses at Discharge Discharge Diagnosis (1) Postoperative fever: Status: Acute (2) Fracture of hip: Status: Acute Qualifiers: Encounter type: initial encounter Fracture type: closed Laterality: right Qualified Code(s): S72.001A - Fracture of unspecified part of neck of right femur, initial encounter for closed fracture (3) Encounter for postoperative care: Status: Acute (4) Status post open reduction and internal fixation (ORIF) of fracture: Status: Acute Reason for Visit Reason for Visit: Fall Brief History: History as per HPI: Luis E Melendez is a 64 year old male with a history of neck fusion surgery underwent right hip surgery and fracture repair after a fall yesterday after he tripped over his dog losing his balance, falling off his porch. He reports that their leg feels a lot better now, but initially, pain radiated all the way down the leg. The patient describes ongoing issues with their spine and some lower back pain, particularly on the left side of the spine. There is mention of a blood saturating the dressing, which was recently changed. The patient denies swelling or pain in the leg at the time of the visit. They also request a refill of a stomach medication, possibly omeprazol. The patient reports being a current smoker and is trying to quit, using gum as an aid. No other acute symptoms or complaints are described. The patient denies alcohol and illicit drug use. No mention of fever, chest pain, shortness of breath, or other systemic symptoms. Hospital Course Hospital Course Patient was admitted to the hospital for evaluation and management of hip fracture. Orthopedics was consulted and he underwent ORIF on 01/24. His postoperative care was complicated by him developing postoperative fever. During hospitalization his blood cultures remain negative, respiratory viral panel was negative. CT imaging of chest abdomen pelvis was negative for acute infection as well. It is believed his fever are most likely in setting of atelectasis. Safe discharge plan were discussed in detail with the patient and he requested to be transitioned to home with home health. He is been discharged home in a likely stable condition for further physical therapy Physical Exam Const: COMMON NORMALS: patient oriented x3 and alert GENERAL APPEARANCE: cooperative ORIENTATION/CONSCIOUSNESS: Yes awake HENMT: COMMON NORMALS: oropharynx normal Neck/C-Spine: COMMON NORMALS: no JVD Resp: COMMON NORMALS: normal respiratory effort and clear to auscultation bilaterally AUSCULTATION: clear to auscultation bilaterally Cardio: COMMON NORMALS: no JVD, regular rhythm, S1 normal heart sound present, S2 normal heart sound present and No murmurs present (Cardio) RHYTHM: regular rhythm HEART SOUNDS: S1 normal heart sound present and S2 normal heart sound present GI: COMMON NORMALS: Normal to inspection, nondistended, normoactive bowel sounds present, Soft to palpation and non-tender PALPATION: Yes Soft to palpation Extremity: COMMON NORMALS: no joint enlargement and no pedal edema NARRATIVE EXTREMITY EXAM: Right hip surgery old without surrounding bruising erythema, Reinforced dressing. No bleeding or strikethrough. Neuro: COMMON NORMALS: patient oriented x3 and moves all extremities SENSORIUM/ORIENTATION: Yes alert Skin: COMMON NORMALS: no rashes or lesions noted GENERAL SKIN EXAM: no rashes or lesions noted Urinary Catheter Management: Sapp: Cath Placed During This Visit: yes, but has since been removed by the nurse Reason for Continuing Indwelling Catheter: Decision to DC Catheter Urinary Catheter Date of Insertion: 01/24/25 Urinary Catheter Time of Insertion: 16:00 Date Urinary Catheter Removed: 01/25/25 Time Urinary Catheter Discontinued: 06:15 Discharge Data Studies Completed and Pending Completed Studies During Hospitalization Category Date Time Status CT chest abdomen pelvis [[place] [id number] Cat Scan 01/27/25 10:20 Completed ] Routine CT lumbar spine wo con* [id number] Stat Cat Scan 01/24/25 12:[address] pelvis wo con [id number] Stat Cat Scan 01/24/25 12:02 Completed XR chest 1V portable [id number] Stat Exams 01/24/25 12:44 Completed XR hip RT 1V wo/w pel [id number] Routine Exams 01/24/25 17:16 Completed XR hip RT 2-3V wo/w pel* [id number] Stat Exams 01/24/25 12:06 [place] [id number] Routine Ultrasound 01/27/25 10:21 Completed Pending at discharge Category Date Time Status Blood Culture Stat Lab 01/26/25 14:06 Results MAG [Magnesium] AM LABS Lab 01/30/25 04:00 Ordered Radiology Impressions Lumbar Spine CT 01/24/25 12:02 IMPRESSION: 1. Multiple Schmorl's nodes throughout the lumbar spine and upper sacrum. Probably all chronic, but 1 or more could conceivably be acute in the setting of trauma. 2. No other acute lumbar spine findings. 3. Additional details as above. Pelvis CT 01/24/25 12:02 IMPRESSION: 1. Impacted right femoral neck fracture with varus deformity and anterior angulation. 2. Enlargement of the prostate gland measuring 6.5 cm by 5 cm by 4.2 cm. Please correlate with PSA levels. 3. Mild, diffuse urinary bladder wall thickening. Likely due to partial bladder outlet obstruction, but cystitis should be considered in the proper clinical setting. 4. No other acute pelvic findings. Hip/Pelvis X-Ray 01/24/25 12:06 Impression: Right femoral neck fracture. Chest X-Ray 01/24/25 12:44 IMPRESSION: No acute disease. Hip X-Ray 01/24/25 17:16 IMPRESSION: As above. Chest/Abdomen/Pelvis CT 01/27/25 10:20 IMPRESSION: Moderate coronary arterial calcification, indicating the presence of coronary artery disease. If the patient has associated symptoms recommend management as per chest pain guidelines. If the patient is asymptomatic consider reviewing modifiable cardiovascular risk factors and managing as per guidelines for primary prevention. IMPRESSION: 1. Subcutaneous emphysema and fluid are present lateral to right hip and partially extending into the gluteal and anterior musculature. Findings are felt to be expected from the recent surgery. An infectious etiology can not be excluded. 2. There is nonspecific urinary bladder wall thickening, under distention versus cystitis. Venous Duplex 01/27/25 10:21 IMPRESSION: No evidence of deep vein thrombosis. Microbiology 01/26/25 14:06 Blood Blood Culture - Preliminary NEGATIVE TO DATE 01/26/25 14:09 Blood Blood Culture - Preliminary NEGATIVE TO DATE Laboratory Results WBC 5.78 10^3/uL (3.29-11.43) 01/29/25 04:55 Corrected WBC Cancelled 01/26/25 04:20 RBC 3.34 10^6/uL (3.85-5.65) L 01/29/25 04:55 Hgb 10.50 g/dL (11.27-16.99) L 01/29/25 04:55 Hct 31.4 % (37-53) L 01/29/25 04:55 MCV 94.0 fl (82-101) 01/29/25 04:55 MCH 31.4 pg (27-33) 01/29/25 04:55 MCHC 33.4 g/dL (30-55) 01/29/25 04:55 RDW 12.8 % (12.1-15.1) 01/29/25 04:55 Plt Count 176 10^3/cmm (157-399) 01/29/25 04:55 MPV 9.7 fL (7.4-10.4) 01/29/25 04:55 Gran % Cancelled 01/26/25 04:20 Neut % (Auto) 61.4 % 01/29/25 04:55 Lymph % (Auto) 22.8 % 01/29/25 04:55 Quay % (Auto) 8.5 % 01/29/25 04:55 Eos % (Auto) 6.1 % 01/29/25 04:55 Baso % (Auto) 0.3 % 01/29/25 04:55 Neut # (Auto) 3.55 10^3/uL (1.8-7.7) 01/29/25 04:55 Lymph # (Auto) 1.3 10^3/uL (0.8-4.8) 01/29/25 04:55 Quay # (Auto) 0.5 10^3/uL (0.2-0.9) 01/29/25 04:55 Eos # (Auto) 0.4 10^3/uL (0.0-0.8) 01/29/25 04:55 Baso # (Auto) 0.0 10^3/uL (0.0-0.1) 01/29/25 04:55 Absolute Gran (auto) Cancelled 01/26/25 04:20 Nucleated RBC % (auto) 0 % 01/29/25 04:55 Nucleated RBCs # 0.0 /100WBC 01/29/25 04:55 PT 12.90 SECONDS (12.1-14.9) 01/24/25 13:30 INR 0.91 (0.8-1.2) 01/24/25 13:30 APTT 27.1 SECONDS (23.9-36.7) 01/24/25 13:30 D-Dimer 3.08 ug/mLFEU (0-0.59) H 01/27/25 10:37 Sodium 134 mmol/L (136-145) L 01/29/25 04:55 Potassium 4.0 mmol/L (3.5-5.1) 01/29/25 04:55 Chloride 99 mmol/L (98-107) 01/29/25 04:55 Carbon Dioxide 25 mmol/L (22-29) 01/29/25 04:55 Anion Gap 14.0 (5-19) 01/29/25 04:55 BUN 9 mg/dL (8-23) 01/29/25 04:55 Creatinine 0.9 mg/dL (0.7-1.2) 01/29/25 04:55 GFR Calculation 85.5 mL/min (90-130) L 01/29/25 04:55 Glucose 93 mg/dL (65-115) 01/29/25 04:55 Estimat Average Glucose 91 01/27/25 10:37 Hemoglobin A1c 4.8 % (4.0-6.0) 01/27/25 10:37 Calculated Osmolality 276 mOsm/kg (285-295) L 01/29/25 04:55 Calcium 8.4 mg/dL (8.5-10.5) L 01/29/25 04:55 Magnesium 2.4 mg/dL (1.7-2.3) H 01/29/25 04:55 Iron 18 ug/dL (59-158) L 01/27/25 10:37 TIBC 181 mcg/dl 01/27/25 10:37 % Saturation 9.9 % (20-50) L 01/27/25 10:37 Unsat Iron Binding 163 ug/dL (112-347) 01/27/25 10:37 Total Bilirubin 0.8 mg/dL (0.15-1.2) 01/29/25 04:55 AST 19 U/L (0-40) 01/29/25 04:55 ALT 8 U/L (0-41) 01/29/25 04:55 Alkaline Phosphatase 50 U/L (40-130) 01/29/25 04:55 Total Protein 5.9 g/dL (6.6-8.7) L 01/29/25 04:55 Albumin 3.0 g/dL (3.5-5.2) L 01/29/25 04:55 Globulin 2.9 g/dL (1.3-4.6) 01/29/25 04:55 Vitamin B12 303 pg/mL (232-1245) 01/27/25 10:37 Folate 6.9 ng/mL (4.5-32.2) 01/28/25 04:18 Procalcitonin 0.29 ng/mL (0-0.5) 01/27/25 10:37 TSH 1.22 uIU/mL (0.27-4.20) 01/27/25 10:37 Urine Color Yellow (Yellow) 01/26/25 10:35 Urine Appearance Clear (CLEAR) 01/26/25 10:35 Urine pH 5.5 (5-7) 01/26/25 10:35 Ur Specific Rawlings 1.009 (1.005-1.030) 01/26/25 10:35 Urine Protein Negative (Negative) 01/26/25 10:35 Urine Glucose (UA) Negative (Normal) 01/26/25 10:35 Urine Ketones Negative (Negative) 01/26/25 10:35 Urine Blood Negative (Negative) 01/26/25 10:35 Urine Nitrate Negative (Negative) 01/26/25 10:35 Urine Bilirubin Negative (Negative) 01/26/25 10:35 Urine Urobilinogen 1.0 mg/dL (Negative) 01/26/25 10:35 Ur Leukocyte Esterase Negative (Negative) 01/26/25 10:35 Urine RBC 0-2 /hpf (0-2) 01/26/25 10:35 Urine WBC 0-5 /hpf (0-5) 01/26/25 10:35 Ur Squamous Epith Cells 0-5 /hpf (0-5) 01/26/25 10:35 Amorphous Sediment Not Reportable 01/26/25 10:35 Urine Bacteria None seen /hpf (NONE) 01/26/25 10:35 Hyaline Casts 0.40 /lpf 01/26/25 10:35 Nasal MRSA (PCR) Not detected (Negative) 01/27/25 12:30 Adenovirus (PCR) Not detected (NOT DETECT) 01/26/25 09:27 C. pneumoniae DNA (PCR) Not detected (NOT DETECT) 01/26/25 09:27 Coronavirus 229E (PCR) Not detected (NOT DETECT) 01/26/25 09:27 Human Metapneumovir PCR Not detected (NOT DETECT) 01/26/25 09:27 Influenza A (H1) PCR Not detected (NOT DETECT) 01/26/25 09:27 Influ A (H1/09) PCR Not detected (NOT DETECT) 01/26/25 09:27 Influenza A (H3) PCR Not detected (NOT DETECT) 01/26/25 09:27 Influenza Type A (PCR) Not detected (NOT DETECT) 01/26/25 09: Influenza Type B (PCR) Not detected (NOT DETECT) 01/26/25 09:27 M. pneumoniae (PCR) Not detected (NOT DETECT) 01/26/25 09:27 Parainfluenza 1 (PCR) Not detected (NOT DETECT) 01/26/25 09:27 Parainfluenza 2 (PCR) Not detected (NOT DETECT) 01/26/25 09:27 Parainfluenza 3 (PCR) Not detected (NOT DETECT) 01/26/25 09:27 Parainfluenza 4 (PCR) Not detected (NOT DETECT) 01/26/25 09:27 RSV Type A (PCR) Not detected (NOT DETECT) 01/26/25 09:27 RSV Type B (PCR) Not detected (NOT DETECT) 01/26/25 09:27 Entero/Rhino (PCR) Not detected (NOT DETECT) 01/26/25 09:27 SARS-CoV-2 (PCR) Not detected (NOT DETECT) 01/26/25 09:27 Vitals Last Vital Signs Temp 98.8 F 01/29/25 04:35 Pulse 89 01/29/25 04:35 Resp 17 01/29/25 04:35 BP 116/71 01/29/25 04:35 Pulse Ox 92 01/29/25 04:35 O2 Del Method Room Air 01/28/25 12:03 O2 Flow Rate 2 01/24/25 18:35 Discharge Plan Discharge Patient Disposition: Home Health Service Condition: Stable Prescriptions: New hydrocodone-acetaminophen 5-325 mg tablet 1 - 2 tab PO .Q4-6H Qty: 40 0RF aspirin 325 mg tablet 325 mg PO DAILY 30 Days Qty: 30 0RF levofloxacin 750 mg tablet 750 mg PO Q24H 3 Days Qty: 3 0RF amoxicillin-pot clavulanate 875-125 mg tablet 1 tab PO BID Qty: 6 0RF Continued omeprazole 40 mg capsule,delayed release(DR/EC) 40 mg PO DAILY duloxetine 30 mg capsule,delayed release(DR/EC) 30 mg PO DAILY Discontinued acetaminophen [Tylenol Extra Strength] 500 mg Tablet 1,000 mg PO QID PRN (Reason: Fever Or Pain) Discharge Orders: Discharge Order (Routine); Ordered 01/29/25 Ordered By: Mahamed Bates Other Ambulatory Orders: DME: Walker (Order) Location: None Selected Ordered By: Pola Gonzalez Referrals: [facility] [place] [Outside] Pola Gonzalez DO [Physician, Orthopedics] - 02/08/25 1:45 pm Herbert Law [Primary Care Provider, Family Practice] - 02/01/25 11:00 am Discharge Diet: Advance as tolerated and Regular Discharge Activity: Increase activity as tolerated and Limit activity as instructed Patient Instructions: Hydrocodone/Acetaminophen (By mouth), Aspirin (By mouth), Amoxicillin/Clavulanate Potassium (By mouth), Levofloxacin (By mouth), Total Hip Replacement (DC), Joint Replacement Stoplight, Opioid Safety Activity Restrictions/Additional Instructions: You are being discharged from the hospital today during which time you have been under the care of Dr. Gonzalez. You had a right hip fracture. You were treated for this injury with right hip hemiarthroplasty. You may resume you normal diet (including any special diets as directed by your primary doctor) as well as your home medications. You should follow up with you primary doctor if you have any questions regarding medication you took prior to your stay in the hospital. You may take your pain medication as prescribed. After the first few days, take your pain medication as needed. Do not drive or drink alcohol while taking your pain medication. Your injury may increase your risk of developing a blood clot,or DVT, in your arm or leg. This could potentially dislodge and travel to your lungs and become a life threatening condition called apulmonary embolus,or PE. You have been prescribed aspirin to be taken to prevent this. Frequent movement of the legs will also help prevent this from occurring. If you develop any new or worsening cough, chestpain, bloody sputum or shortness of breath, call 911 or go to the EmergencyRoom. Always keep your surgical incision/dressing clean and dry. If you experience increasing pain at your incision site, redness, swelling, increasing discharge, foul odors, or fevers (greater than 100.4), night sweats or chills you should call the office at the above number. If you feel this is an emergency you should be evaluated in the Emergency Department of a nearby hospital. Orthopedic Patient Instructions Summary: Weight Bearing: Weight-bear as tolerated Activity: Weight-bear as tolerated. Diet: Regular. Wound Care: Keep dressing clean and dry. Anticoagulation: Aspirin Pain Medication: Take only as needed. Ice, rest and elevation will be of great benefit. Please plan to follow-up [facility] Brothers [] in [] weeks. You will need to call the clinic [phone] to schedule this visit. Thank you far allowing me to participate in your care. Do not hesitate to call the office with any questions or concerns. Discharge Attestations Time Spent in Discharge Care*: greater than 30 min Specific Discharge Activities: educating patient, discussing with pcp/other providers, discussing with heel caser/social workers/dc planners, documenting/other paperwork and evaluating patient/reviewing data Status at Discharge: Cognitive status at discharge: cognitively intact, Behavioral status at discharge: cooperative, Functional status at discharge: uses cane/walker, Overall status at discharge: patient is progressing back to baseline Quality Metrics Clinical Quality Measures [ No reported AMI, CVA or VTE this stay] Coding Level of Care Code 66886 Total time (in minutes) for Discharge: 65 Diagnoses Postoperative fever R50.82 Closed fracture of right hip, initial encounter S72.001A Encounter type: initial encounter Fracture type: closed Laterality: right Encounter for postoperative care Z48.89 Status post open reduction and internal fixation (ORIF) of fracture Z98.890; Z87.81
--- NOTE | 2025-01-29 09:25 | DCPLANNER ---
Called [facility] to set a ride to go home at 0905. trip#[phone].
--- NOTE | 2025-01-29 10:21 | PC.NURSE ---
Discharge Note Patient discharged to home via medicaid ride accompanied by self. Discharge instructions reviewed with patient and/or in store representative. Mobile pharmacy medications and/or prescriptions provided. Belongings/home medications returned.
== END 2025-01-29 10:22 | disposition home health service (06) | DRG 522 ==
LOC: ER 13:59 → OR 14:20 → MEDSURG 22:08
PROVIDERS: Internal Medicine; Admitting Provider Orthopaedic Surgery; Emergency Provider Emergency Medicine; PCP Family Medicine; Visit Provider Student in an Organized Health Care Education/Training Program
PROC: 0SRR0JZ Replacement of Right Hip Joint, Femoral Surface with Synthetic Substitute, Open Approach (ICD-10-PCS; principal; 2025-01-24 16:35)
DX: S72.002A Fracture of unspecified part of neck of left femur, initial encounter for closed fracture (principal); W17.89XA Other fall from one level to another, initial encounter; R50.82 Postprocedural fever; F17.200 Nicotine dependence, unspecified, uncomplicated; D69.6 Thrombocytopenia, unspecified; R00.0 Tachycardia, unspecified; G89.29 Other chronic pain; M54.2 Cervicalgia; M54.9 Dorsalgia, unspecified; Z98.1 Arthrodesis status; Y92.89 Other specified places as the place of occurrence of the external cause
CPT/HCPCS: 36415; 51702; 71045; 71250; 72131; 72192; 73501; 73502; 74176; 80053; 81001; 82607; 82746; 83036; 83540; 83550; 83735; 84145; 84443; 85025; 85378; 85610; 85730; 87040; 87486; 87581; 87633; 93005; 93970; 96372; 96374; 96375; 97116; 97161; 97166; 97530; 97535; 99285; A9281; C1776; J0690; J0780; J1100; J1171; J1644; J2405; J2543; J2704; J3010; J3370; J3490; J7030; J9999

== ENCOUNTER → 2025-02-15 15:46 | Outpatient (BNVA) | payer MEDICAID, SELFPAY | PROVIDERS: PCP Family Medicine; Visit Provider Orthopaedic Surgery | DX: Z98.890 Other specified postprocedural states (principal) | CPT/HCPCS: 73502; 99024 ==